=== PATIENT | female | born 1945 | race Caucasian/White ===

== ENCOUNTER 2017-05-31 10:12 | Inpatient (IN) | payer OTHER ==
[~2017-05-31] VITALS: Ht 177.8 cm; Wt 117.2 kg
[~2017-05-31 10:12] MED LIST: ASPI-891 PO; ATOR20TA65 PO; BIMA2.5D4 OU; BRIM5DRO2 OP; FENO45CA2 PO; FURO20TA4 PO; HYDR-4154 PO; INSU100I3 SQ; INSU3INS3 SQ; LAMO200T7 PO; LEVO75TA4 PO; LITH150C PO; LORA0.5T2 PO; SOTA120T PO
[2017-05-31 10:41] LABS: BASOPHILS % (AUTO) 0.1 % (0.0-5.0); EOSINOPHILS % (AUTO) 0.5 % (0.0-8.0); HEMATOCRIT 32.2 % (36-48); MEAN CORPUSCULAR HEMOGLOBIN 28.2 pg (27.0-33.0); MEAN CORPUSCULAR HGB CONC 33.5 g/dL (32.0-36.0); MEAN CORPUSCULAR VOLUME 84.1 fL (79-99); MONOCYTES % (AUTO) 9.4 % (3.0-13.0); NEUTROPHILS % (AUTO) 86.7 % (40.0-77.0); PLATELET COUNT (AUTO) 158 K/uL (130-400); RED BLOOD CELL COUNT(AUTO) 3.82 MIL/uL (4.00-5.50); RED CELL DISTRIBUTION WIDTH 14.9 % (11.0-15.5); WHITE BLOOD COUNT (AUTO) 8.8 K/uL (4.8-10.8)
[2017-05-31 10:44] LABS: LYMPHOCYTES % (AUTO) 3.3 % (21.0-51.0)
[2017-05-31 10:47] LABS: CREATININE 1.2 mg/dL (0.5-1.5)
[2017-05-31 10:54] LABS: INR 1.04 (0.85-1.15); PARTIAL THROMBOPLASTIN TIME 25.1 SEC (26.3-35.5); PROTHROMBIN TIME 10.9 SEC (9.6-11.6)
[2017-05-31 10:59] LABS: APPEARANCE,URINE Clear (CLEAR); BILIRUBIN,URINE Negative (NEGATIVE); COLOR,URINE Yellow (YELLOW); GLUCOSE, URINE (UA) Negative (NEGATIVE); KETONES,URINE Negative (NEGATIVE); LEUKOCYTE ESTERASE ,URINE Trace (NEGATIVE); NITRATE,URINE Negative (NEGATIVE); OCCULT BLOOD,URINE Negative (NEGATIVE); PROTEIN,URINE Negative (NEGATIVE)
[2017-05-31] MEDS ORDERED: SODIUM CHLORIDE 0.9% 1000ML 1,000 ML IV ONE (11:00)
[2017-05-31 11:18] LABS: ALBUMIN 3.3 g/dL (3.5-5.0); BILIRUBIN,TOTAL 0.7 mg/dL (0.2-1.0); TOTAL PROTEIN, SERUM 6.6 g/dL (6.0-8.3); TROPONIN I 0.1 ng/mL (0.00-0.06)
[2017-05-31 11:21] LABS: BACTERIA,URINE Many /HPF (None Seen); RBC,URINE None Seen /HPF (0-1); SQUAMOUS EPITHELIAL CELL,UR Rare /LPF (0-2); WBC,URINE 0-1 /HPF (0-1)
[2017-05-31] MEDS ORDERED: CEFTRIAXONE SODIUM 1 GM ONE (11:23)
[2017-05-31] MEDS ORDERED: ACETAMINOPHEN 325 MG TAB ONE (11:23)
[2017-05-31] MEDS ORDERED: SODIUM CHLORIDE 0.9% 50 ML IV ONE (11:24)
[2017-05-31] MEDS ORDERED: OSELTAMIVIR PHOSPHATE 75 MG CAP ONE (11:24)
[2017-05-31] MEDS ORDERED: ONDANSETRON HCL 4 MG/2 ML VIAL IV PRN (13:30)
[2017-05-31] MEDS ORDERED: GUAIFENESIN-DM 200/20 MG 10 ML PO PRN (13:30)
[2017-05-31] MEDS ORDERED: NITROGLYCERIN 0.4 MG SL TAB SL PRN (13:30)
[2017-05-31] MEDS ORDERED: ACETAMINOPHEN-CODEINE 300/30MG TAB PO PRN ×2 (13:30)
[2017-05-31] MEDS ORDERED: MORPHINE SULFATE 2 MG/ML 1ML SYG IV PRN (13:30)
[2017-05-31] MEDS ORDERED: HYDRALAZINE HCL 20 MG/ML VIAL IV PRN (13:30)
[2017-05-31] MEDS ORDERED: LACTULOSE 20 GM/30 ML UDCUP PO PRN (13:30)
[2017-05-31] MEDS ORDERED: MAG HYDROX/AL HYDROX/SIMETH ES 30 ML SUSP UDCUP PO PRN (13:30)
[2017-05-31] MEDS: METHYLPREDNISOLONE SOD SUCC 40MG/ML 1ML IVP SCH ×2 (13:30→20:55)
[2017-05-31] MEDS ORDERED: CEFTRIAXONE 1GM/D5W 50ML 50 ML IV SCH (13:30)
[2017-05-31] MEDS ORDERED: ACETAMINOPHEN 325 MG TAB PO PRN ×2 (13:30)
[2017-05-31] MEDS ORDERED: METHYLPREDNISOLONE SOD SUCC 40MG/ML 1ML ONE (17:11)
[2017-05-31 18:15] VITALS: BP 152/78
[2017-05-31 19:00] VITALS: BP 151/67
[2017-05-31] MEDS: IPRATROPIUM/ALBUTEROL SULFATE 3 ML SOLUTION IH SCH ×2 (19:19→23:55)
[2017-05-31] MEDS ORDERED: FURO40TA5 PO (20:43)
[2017-05-31] MEDS ORDERED: INSLAN SQ ×2 (20:43→20:49)
[2017-05-31] MEDS ORDERED: INSU100I15 SQ (20:49)
[2017-05-31] MEDS: FAMOTIDINE/PF 20 MG/2 ML VIAL IV SCH (20:55)
[2017-05-31] MEDS: OSELTAMIVIR PHOSPHATE 75 MG CAP PO SCH (20:55)
[2017-05-31] MEDS ORDERED: DILTIAZEM 125MG+100 ML NS 125 ML IV SCH (22:45)
[2017-05-31 22:55] LABS: CREATINE KINASE MB 2.1 ng/mL (0.5-3.6); TROPONIN I 0.08 ng/mL (0.00-0.06)
[2017-05-31] MEDS ORDERED: INSULIN HUMULIN R 100 UNIT/ML 3ML ONE (23:23)
[2017-05-31] MEDS: AZITHROMYCIN 500MG+NS 250ML 250 ML IV SCH (23:40)
[2017-05-31] MEDS: DILTIAZEM HCL 5 MG/ML 5 ML VIAL IVP SCH (23:40)
[2017-05-31] MEDS: FUROSEMIDE 10 MG/ML 2ML VIAL IV SCH (23:40)
[2017-05-31] MEDS: INSULIN HUMULIN R 100 UNIT/ML 3ML SQ SCH (23:43)
[2017-06-01] VITALS (8 sets, daily range): BP systolic 110–193; BP diastolic 60–97
[2017-06-01] MEDS: IPRATROPIUM/ALBUTEROL SULFATE 3 ML SOLUTION IH SCH ×4 (04:28→23:25)
[2017-06-01 05:43] LABS: HEMATOCRIT 30.5 % (36-48); MEAN CORPUSCULAR HEMOGLOBIN 27.8 pg (27.0-33.0); MEAN CORPUSCULAR HGB CONC 33.3 g/dL (32.0-36.0); MEAN CORPUSCULAR VOLUME 83.4 fL (79-99); PLATELET COUNT (AUTO) 163 K/uL (130-400); RED BLOOD CELL COUNT(AUTO) 3.66 MIL/uL (4.00-5.50); RED CELL DISTRIBUTION WIDTH 14.7 % (11.0-15.5); WHITE BLOOD COUNT (AUTO) 4.8 K/uL (4.8-10.8)
[2017-06-01 06:04] LABS: CREATININE 1.1 mg/dL (0.5-1.5); POTASSIUM 3.8 mmol/L (3.5-5.1); THYROID STIMULATING HORMONE 0.53 uIU/mL (0.36-3.74)
[2017-06-01 06:21] LABS: HEMOGLOBIN A1C 6.2 % (4.0-6.0)
[2017-06-01] MEDS: METHYLPREDNISOLONE SOD SUCC 40MG/ML 1ML IVP SCH ×3 (06:37→21:33)
[2017-06-01] MEDS: LEVOTHYROXINE 75 MCG TABLET PO SCH (06:38)
[2017-06-01] MEDS: INSULIN LISPRO 100 UNIT/ML 3ML SQ SCH ×3 (06:47→17:50)
[2017-06-01] MEDS: INSULIN HUMULIN R 100 UNIT/ML 3ML SQ SCH ×4 (06:50→21:55)
[2017-06-01] MEDS: BRIMONIDINE TARTRATE 0.2% 5 ML BOTTLE OP SCH ×2 (09:00→21:00)
[2017-06-01] MEDS ORDERED: FUROSEMIDE 40 MG TABLET PO SCH (09:00)
[2017-06-01] MEDS ORDERED: LITHIUM CARBONATE 150 MG CAPSULE PO SCH (09:00)
[2017-06-01] MEDS: FAMOTIDINE/PF 20 MG/2 ML VIAL IV SCH ×2 (10:05→21:33)
[2017-06-01] MEDS: CEFTRIAXONE SODIUM 1 GM IVP SCH (10:05)
[2017-06-01] MEDS: WATER FOR INJECTION,STERILE 5 ML VIAL INJ SCH (10:06)
[2017-06-01] MEDS: FUROSEMIDE 10 MG/ML 2ML VIAL IV SCH (10:06)
[2017-06-01] MEDS: ASPIRIN 325MG EC TAB 325 MG TABLET.DR PO SCH (10:07)
[2017-06-01] MEDS: OSELTAMIVIR PHOSPHATE 75 MG CAP PO SCH ×2 (10:07→21:35)
[2017-06-01] MEDS: SOTALOL HCL 80 MG TABLET PO SCH ×2 (10:43→21:35)
[2017-06-01] MEDS: HYDRALAZINE HCL 25 MG TABLET PO SCH ×3 (10:43→21:34)
[2017-06-01] MEDS ORDERED: INSULIN LISPRO 100 UNIT/ML 3ML SQ SCH (18:15)
[2017-06-01] MEDS: TRILIPIX PO SCH (21:00)
[2017-06-01] MEDS: LATANOPROST 2.5 ML DROPS OU SCH (21:00)
[2017-06-01] MEDS: LAMICTAL 200 MG PO SCH (21:00)
[2017-06-01] MEDS ORDERED: INSULIN GLARGINE 100 UNITS/ML 10 ML VIAL SQ SCH ×2 (21:00)
[2017-06-01] MEDS: ATORVASTATIN CALCIUM 20 MG TABLET PO SCH (21:34)
[2017-06-01] MEDS: DILTIAZEM HCL 5 MG/ML 5 ML VIAL IVP SCH (21:56)
[2017-06-01] MEDS: AZITHROMYCIN 500MG+NS 250ML 250 ML IV SCH (23:34)
[2017-06-02 03:30] VITALS: BP 147/62
[2017-06-02] MEDS: IPRATROPIUM/ALBUTEROL SULFATE 3 ML SOLUTION IH SCH ×4 (04:31→23:23)
[2017-06-02 05:38] LABS: HEMATOCRIT 38.9 % (36-48); MEAN CORPUSCULAR HEMOGLOBIN 31.3 pg (27.0-33.0); MEAN CORPUSCULAR HGB CONC 33.5 g/dL (32.0-36.0); MEAN CORPUSCULAR VOLUME 93.6 fL (79-99); PLATELET COUNT (AUTO) 204 K/uL (130-400); RED BLOOD CELL COUNT(AUTO) 4.16 MIL/uL (4.00-5.50); RED CELL DISTRIBUTION WIDTH 13.9 % (11.0-15.5); WHITE BLOOD COUNT (AUTO) 4.9 K/uL (4.8-10.8)
[2017-06-02 05:45] LABS: CREATININE 0.8 mg/dL (0.5-1.5); POTASSIUM 3.6 mmol/L (3.5-5.1)
[2017-06-02 06:03] VITALS: BP 172/73
[2017-06-02] MEDS: METHYLPREDNISOLONE SOD SUCC 40MG/ML 1ML IVP SCH ×2 (06:31→21:53)
[2017-06-02] MEDS: LEVOTHYROXINE 75 MCG TABLET PO SCH (06:31)
[2017-06-02] MEDS ORDERED: INSULIN LISPRO 100 UNIT/ML 3ML SQ ONE ×2 (06:36→12:18)
[2017-06-02] MEDS: INSULIN LISPRO 100 UNIT/ML 3ML SQ SCH ×3 (06:37→17:27)
[2017-06-02] MEDS: INSULIN HUMULIN R 100 UNIT/ML 3ML SQ SCH ×4 (06:38→21:00)
[2017-06-02 08:03] VITALS: BP 196/81
[2017-06-02] MEDS: FAMOTIDINE/PF 20 MG/2 ML VIAL IV SCH ×2 (08:38→21:53)
[2017-06-02] MEDS: FUROSEMIDE 10 MG/ML 2ML VIAL IV SCH (08:38)
[2017-06-02] MEDS: OSELTAMIVIR PHOSPHATE 75 MG CAP PO SCH ×2 (08:39→21:53)
[2017-06-02] MEDS: ENOXAPARIN SODIUM 40 MG/0.4 ML SYRINGE SQ SCH (08:39)
[2017-06-02] MEDS: ASPIRIN 325MG EC TAB 325 MG TABLET.DR PO SCH (08:39)
[2017-06-02] MEDS: HYDRALAZINE HCL 25 MG TABLET PO SCH ×3 (08:39→21:53)
[2017-06-02] MEDS: BRIMONIDINE TARTRATE 0.2% 5 ML BOTTLE OP SCH ×2 (08:47→21:00)
[2017-06-02] MEDS ORDERED: MAGNESIUM 2GM PREMIX 50ML 50 ML IV SCH (10:15)
[2017-06-02] MEDS ORDERED: POTASSIUM CHLORIDE 20MEQ/100ML 100 ML IV PRN (10:15)
[2017-06-02] MEDS ORDERED: POTASSIUM CHLORIDE 10% ELIXIR 20 MEQ/15 ML UDCUP PO PRN (10:15)
[2017-06-02] MEDS ORDERED: POTASSIUM CHLORIDE 20 MEQ ERTAB PO PRN (10:15)
[2017-06-02] MEDS ORDERED: LIDOCAINE HCL-MPF 1% 2ML VIAL IVP PRN (10:15)
[2017-06-02] MEDS: CEFTRIAXONE SODIUM 1 GM IVP SCH (10:50)
[2017-06-02] MEDS: WATER FOR INJECTION,STERILE 5 ML VIAL INJ SCH (10:50)
[2017-06-02 11:31] VITALS: BP 166/66
[2017-06-02 16:47] VITALS: BP 158/75
[2017-06-02 20:18] VITALS: BP 155/77
[2017-06-02] MEDS: LATANOPROST 2.5 ML DROPS OU SCH (21:00)
[2017-06-02] MEDS: LAMICTAL 200 MG PO SCH (21:00)
[2017-06-02] MEDS: TRILIPIX PO SCH (21:00)
[2017-06-02] MEDS: AZITHROMYCIN 500MG+NS 250ML 250 ML IV SCH (21:45)
[2017-06-02] MEDS: INSULIN GLARGINE 100 UNITS/ML 10 ML VIAL SQ SCH (21:46)
[2017-06-02] MEDS: ATORVASTATIN CALCIUM 20 MG TABLET PO SCH (21:53)
[2017-06-02] MEDS ORDERED: ALBUTEROL SULFATE 0.083% 2.5 MG/3 ML INH IH ONE (23:13)
[2017-06-02] MEDS ORDERED: IPRATROPIUM 0.5 MG/2.5 ML INH IH ONE (23:13)
[2017-06-03 00:05] VITALS: BP 133/74
[2017-06-03 04:03] VITALS: BP 188/79
[2017-06-03] MEDS: IPRATROPIUM/ALBUTEROL SULFATE 3 ML SOLUTION IH SCH ×3 (04:32→17:04)
[2017-06-03 05:08] LABS: HEMATOCRIT 34.9 % (36-48); MEAN CORPUSCULAR HEMOGLOBIN 27.6 pg (27.0-33.0); MEAN CORPUSCULAR HGB CONC 33.5 g/dL (32.0-36.0); MEAN CORPUSCULAR VOLUME 82.5 fL (79-99); PLATELET COUNT (AUTO) 189 K/uL (130-400); RED BLOOD CELL COUNT(AUTO) 4.22 MIL/uL (4.00-5.50); RED CELL DISTRIBUTION WIDTH 14.6 % (11.0-15.5); WHITE BLOOD COUNT (AUTO) 6.7 K/uL (4.8-10.8)
[2017-06-03 05:17] LABS: CREATININE 1.1 mg/dL (0.5-1.5); MAGNESIUM 2.1 mg/dL (1.80-2.40); POTASSIUM 4.2 mmol/L (3.5-5.1)
[2017-06-03] MEDS: LEVOTHYROXINE 75 MCG TABLET PO SCH (06:55)
[2017-06-03] MEDS: INSULIN LISPRO 100 UNIT/ML 3ML SQ SCH ×3 (07:03→17:16)
[2017-06-03] MEDS: INSULIN HUMULIN R 100 UNIT/ML 3ML SQ SCH ×4 (07:04→22:43)
[2017-06-03 07:34] VITALS: BP 168/71
[2017-06-03] MEDS: BRIMONIDINE TARTRATE 0.2% 5 ML BOTTLE OP SCH ×2 (09:00→22:59)
[2017-06-03] MEDS: ENOXAPARIN SODIUM 40 MG/0.4 ML SYRINGE SQ SCH (09:17)
[2017-06-03] MEDS: OSELTAMIVIR PHOSPHATE 75 MG CAP PO SCH ×2 (09:17→22:56)
[2017-06-03] MEDS: FAMOTIDINE/PF 20 MG/2 ML VIAL IV SCH ×2 (09:18→22:53)
[2017-06-03] MEDS: METHYLPREDNISOLONE SOD SUCC 40MG/ML 1ML IVP SCH ×2 (09:18→22:56)
[2017-06-03] MEDS: LOSARTAN 50 MG TABLET PO SCH (09:18)
[2017-06-03] MEDS: ASPIRIN 325MG EC TAB 325 MG TABLET.DR PO SCH (09:18)
[2017-06-03] MEDS: FUROSEMIDE 10 MG/ML 2ML VIAL IV SCH (09:19)
[2017-06-03] MEDS: HYDRALAZINE HCL 25 MG TABLET PO SCH ×3 (09:19→22:56)
[2017-06-03 11:58] VITALS: BP 142/76
[2017-06-03] MEDS: CEFTRIAXONE SODIUM 1 GM IVP SCH (12:00)
[2017-06-03] MEDS: WATER FOR INJECTION,STERILE 5 ML VIAL INJ SCH (12:00)
[2017-06-03] MEDS ORDERED: SOTALOL HCL 80 MG TABLET PO SCH (12:15)
[2017-06-03] MEDS ORDERED: METOPROLOL TARTRATE 1 MG/ML 5ML VIAL IV SCH (12:15)
[2017-06-03 16:33] VITALS: BP 139/90
[2017-06-03 20:00] VITALS: BP 144/71
[2017-06-03] MEDS: LATANOPROST 2.5 ML DROPS OU SCH (21:00)
[2017-06-03] MEDS: LAMICTAL 200 MG PO SCH (21:00)
[2017-06-03] MEDS: INSULIN GLARGINE 100 UNITS/ML 10 ML VIAL SQ SCH (22:44)
[2017-06-03] MEDS: ATORVASTATIN CALCIUM 20 MG TABLET PO SCH (22:56)
[2017-06-03] MEDS: SOTALOL HCL 80 MG TABLET PO SCH (22:58)
[2017-06-03] MEDS: AZITHROMYCIN 500MG+NS 250ML 250 ML IV SCH (22:58)
[2017-06-03] MEDS: TRILIPIX PO SCH (23:05)
[2017-06-04] VITALS: BP 140/78
[2017-06-04] MEDS: IPRATROPIUM/ALBUTEROL SULFATE 3 ML SOLUTION IH SCH ×2 (00:25→06:44)
[2017-06-04 03:47] VITALS: BP 131/99
[2017-06-04 05:26] LABS: POTASSIUM 4.1 mmol/L (3.5-5.1)
[2017-06-04] MEDS: INSULIN HUMULIN R 100 UNIT/ML 3ML SQ SCH (06:31)
[2017-06-04] MEDS: LEVOTHYROXINE 75 MCG TABLET PO SCH (06:45)
[2017-06-04] MEDS: INSULIN LISPRO 100 UNIT/ML 3ML SQ SCH (06:46)
[2017-06-04 08:56] VITALS: BP 176/79
[2017-06-04] MEDS: BRIMONIDINE TARTRATE 0.2% 5 ML BOTTLE OP SCH (09:00)
[2017-06-04] MEDS: SOTALOL HCL 80 MG TABLET PO SCH (09:00)
[2017-06-04 09:42] LABS: HEMATOCRIT 40.1 % (36-48); MEAN CORPUSCULAR HEMOGLOBIN 27.2 pg (27.0-33.0); MEAN CORPUSCULAR HGB CONC 32.7 g/dL (32.0-36.0); PLATELET COUNT (AUTO) 240 K/uL (130-400); RED BLOOD CELL COUNT(AUTO) 4.83 MIL/uL (4.00-5.50); RED CELL DISTRIBUTION WIDTH 14.2 % (11.0-15.5); WHITE BLOOD COUNT (AUTO) 9.9 K/uL (4.8-10.8)
[2017-06-04] MEDS: ASPIRIN 325MG EC TAB 325 MG TABLET.DR PO SCH (10:27)
[2017-06-04] MEDS: FAMOTIDINE/PF 20 MG/2 ML VIAL IV SCH (10:27)
[2017-06-04] MEDS: METHYLPREDNISOLONE SOD SUCC 40MG/ML 1ML IVP SCH (10:27)
[2017-06-04] MEDS: OSELTAMIVIR PHOSPHATE 75 MG CAP PO SCH (10:27)
[2017-06-04] MEDS: HYDRALAZINE HCL 25 MG TABLET PO SCH (10:28)
[2017-06-04] MEDS: LOSARTAN 50 MG TABLET PO SCH (10:29)
[2017-06-04] MEDS: WATER FOR INJECTION,STERILE 5 ML VIAL INJ SCH (10:43)
[2017-06-04] MEDS: CEFTRIAXONE SODIUM 1 GM IVP SCH (10:43)
[2017-06-04] MEDS: ENOXAPARIN SODIUM 40 MG/0.4 ML SYRINGE SQ SCH (10:43)
[2017-06-04] MEDS ORDERED: DOXY100T2 PO (10:55)
[2017-06-04] MEDS ORDERED: SOTA120T PO (10:55)
== END 2017-06-04 12:28 | disposition home or self-care (01) | DRG 193 ==
LOC: EDH 10:12 → OBSVTOIN 13:26 → EDHIP 13:26 → 4CH 18:10
PROVIDERS: ADMIT Internal Medicine; ATTEND Internal Medicine
DX: J10.1 Influenza due to other identified influenza virus with other respiratory manifestations (principal); I50.23 Acute on chronic systolic (congestive) heart failure; I48.0 Paroxysmal atrial fibrillation; E11.65 Type 2 diabetes mellitus with hyperglycemia; N39.0 Urinary tract infection, site not specified; J44.0 Chronic obstructive pulmonary disease with (acute) lower respiratory infection; I11.0 Hypertensive heart disease with heart failure; Z79.01 Long term (current) use of anticoagulants; I48.2 Chronic atrial fibrillation; J20.9 Acute bronchitis, unspecified; E03.9 Hypothyroidism, unspecified; E78.5 Hyperlipidemia, unspecified; B96.20 Unspecified Escherichia coli [E. coli] as the cause of diseases classified elsewhere; I25.10 Atherosclerotic heart disease of native coronary artery without angina pectoris; Z79.4 Long term (current) use of insulin; Z82.49 Family history of ischemic heart disease and other diseases of the circulatory system; Z90.710 Acquired absence of both cervix and uterus; Z96.653 Presence of artificial knee joint, bilateral; Z28.21 Immunization not carried out because of patient refusal
CPT/HCPCS: 36415; 71010; 71045; 80048; 80053; 81001; 82550; 82553; 82948; 83036; 83605; 83735; 83874; 83880; 84443; 84484; 85025; 85027; 85610; 85730; 87040; 87088; 87186; 87804; 93005; 94640; 94664; J0360; J0456; J0696; J1650; J1815; J1940; J2920; J3475; J3490; J7030

== ENCOUNTER 2017-06-13 08:52 | Emergency (ER) | payer OTHER ==
[~2017-06-13 08:52] MED LIST changes: +DOXY100T2 PO; -FURO20TA4 PO; +FURO40TA5 PO; +INSLAN SQ; +INSU100I15 SQ; -INSU100I3 SQ; -INSU3INS3 SQ; -LORA0.5T2 PO
[2017-06-13] MEDS ORDERED: SODIUM CHLORIDE 0.9% 1000ML 1,000 ML IV ONE (09:18)
[2017-06-13 09:39] LABS: BASOPHILS % (AUTO) 0.3 % (0.0-5.0); EOSINOPHILS % (AUTO) 1.2 % (0.0-8.0); HEMATOCRIT 35.1 % (36-48); LYMPHOCYTES % (AUTO) 15.3 % (21.0-51.0); MEAN CORPUSCULAR HGB CONC 32.7 g/dL (32.0-36.0); MEAN CORPUSCULAR VOLUME 82.6 fL (79-99); MONOCYTES % (AUTO) 11.3 % (3.0-13.0); NEUTROPHILS % (AUTO) 71.9 % (40.0-77.0); PLATELET COUNT (AUTO) 277 K/uL (130-400); RED BLOOD CELL COUNT(AUTO) 4.25 MIL/uL (4.00-5.50); RED CELL DISTRIBUTION WIDTH 14.5 % (11.0-15.5)
[2017-06-13 09:48] LABS: CREATININE 1.5 mg/dL (0.5-1.5); POTASSIUM 4.1 mmol/L (3.5-5.1)
[2017-06-13 10:15] LABS: BILIRUBIN,URINE Negative (NEGATIVE); COLOR,URINE Yellow (YELLOW); GLUCOSE, URINE (UA) Negative (NEGATIVE); KETONES,URINE Negative (NEGATIVE); LEUKOCYTE ESTERASE ,URINE Moderate (NEGATIVE); NITRATE,URINE Positive (NEGATIVE); OCCULT BLOOD,URINE Negative (NEGATIVE); PH,URINE 6.5 (5.0-8.0); PROTEIN,URINE Negative (NEGATIVE); UROBILINOGEN,URINE 0.2 mg/dL (0.2-1.0)
[2017-06-13 10:23] LABS: APPEARANCE,URINE SLIGHTLY CLOUDY (CLEAR)
[2017-06-13 10:27] LABS: BACTERIA,URINE Moderate /HPF (None Seen); RBC,URINE None Seen /HPF (0-1); SQUAMOUS EPITHELIAL CELL,UR Few /LPF (0-2)
[2017-06-13] MEDS ORDERED: CEFTRIAXONE SODIUM 1 GM ONE (10:45)
[2017-06-13] MEDS ORDERED: ACETAMINOPHEN 325 MG TAB ONE ×2 (10:45→16:41)
== END 2017-06-13 20:14 | disposition home or self-care (01) ==
LOC: EDH 08:52
DX: N39.0 Urinary tract infection, site not specified (principal); R53.1 Weakness; R26.2 Difficulty in walking, not elsewhere classified; I48.91 Unspecified atrial fibrillation; I25.10 Atherosclerotic heart disease of native coronary artery without angina pectoris; E11.9 Type 2 diabetes mellitus without complications; I10 Essential (primary) hypertension; E78.5 Hyperlipidemia, unspecified; E07.9 Disorder of thyroid, unspecified
CPT/HCPCS: 36415; 70450; 71045; 80048; 81001; 84484; 85025; 87088; 87186; 93005; 96361; 96374; 97161; 99285; G8978; G8979; G8980; G8981; G8982; G8983; J0696; J7030

== ENCOUNTER 2017-07-19 14:06 | Inpatient (IN) | payer OTHER ==
[~2017-07-19] VITALS: Ht 177.8 cm; Wt 115.3 kg
[2017-07-19 14:31] LABS: BASOPHILS % (AUTO) 0.4 % (0.0-5.0); EOSINOPHILS % (AUTO) 0.9 % (0.0-8.0); HEMATOCRIT 34.3 % (36-48); LYMPHOCYTES % (AUTO) 6.2 % (21.0-51.0); MEAN CORPUSCULAR HEMOGLOBIN 27.7 pg (27.0-33.0); MEAN CORPUSCULAR HGB CONC 33.3 g/dL (32.0-36.0); MEAN CORPUSCULAR VOLUME 83.1 fL (79-99); MONOCYTES % (AUTO) 11.8 % (3.0-13.0); NEUTROPHILS % (AUTO) 80.7 % (40.0-77.0); PLATELET COUNT (AUTO) 200 K/uL (130-400); RED BLOOD CELL COUNT(AUTO) 4.13 MIL/uL (4.00-5.50); RED CELL DISTRIBUTION WIDTH 14.6 % (11.0-15.5); WHITE BLOOD COUNT (AUTO) 11.2 K/uL (4.8-10.8)
[2017-07-19 14:51] LABS: POTASSIUM 4.2 mmol/L (3.5-5.1)
[2017-07-19 15:08] LABS: ALBUMIN 3.5 g/dL (3.5-5.0); BILIRUBIN,TOTAL 0.5 mg/dL (0.2-1.0); CREATININE 1.7 mg/dL (0.5-1.5)
[2017-07-19 16:24] LABS: APPEARANCE,URINE Clear (CLEAR); BILIRUBIN,URINE Negative (NEGATIVE); COLOR,URINE Yellow (YELLOW); GLUCOSE, URINE (UA) Negative (NEGATIVE); KETONES,URINE Negative (NEGATIVE); LEUKOCYTE ESTERASE ,URINE Moderate (NEGATIVE); NITRATE,URINE Positive (NEGATIVE); OCCULT BLOOD,URINE Negative (NEGATIVE); PH,URINE 6.5 (5.0-8.0); PROTEIN,URINE Negative (NEGATIVE)
[2017-07-19 17:32] LABS: BACTERIA,URINE Moderate /HPF (None Seen); RBC,URINE 0-1 /HPF (0-1); SQUAMOUS EPITHELIAL CELL,UR Few /LPF (0-2)
[2017-07-20] VITALS (7 sets, daily range): BP systolic 119–156; BP diastolic 58–97
[2017-07-20] MEDS ORDERED: SODIUM CHLORIDE 0.9% 1000ML 1,000 ML IV ONE (00:47)
[2017-07-20] MEDS ORDERED: MEROPENEM 500 MG VIAL ONE (00:47)
[2017-07-20] MEDS ORDERED: MEROPENEM 500MG+NS 50ML 50 ML IV SCH (01:15)
[2017-07-20] MEDS ORDERED: LIDOCAINE HCL-MPF 1% 2ML VIAL IVP PRN (01:15)
[2017-07-20] MEDS ORDERED: GLUCAGON 1MG KIT 1 MG ML IM PRN (01:15)
[2017-07-20] MEDS ORDERED: DEXTROSE 50%-WATER 50 ML DISP.SYRIN IV PRN (01:15)
[2017-07-20] MEDS ORDERED: DiphenhydrAMINE HCL 50 MG/ML VIAL IV PRN (01:15)
[2017-07-20] MEDS ORDERED: NITROGLYCERIN 0.4 MG SL TAB SL PRN (01:15)
[2017-07-20] MEDS ORDERED: HYDRALAZINE HCL 20 MG/ML VIAL IV PRN (01:15)
[2017-07-20] MEDS ORDERED: LACTULOSE 20 GM/30 ML UDCUP PO PRN (01:15)
[2017-07-20] MEDS ORDERED: POTASSIUM CHLORIDE 20 MEQ ERTAB PO PRN (01:15)
[2017-07-20] MEDS ORDERED: MORPHINE SULFATE 2 MG/ML 1ML SYG IVP PRN ×2 (01:15)
[2017-07-20] MEDS ORDERED: POTASSIUM CHLORIDE 10% ELIXIR 20 MEQ/15 ML UDCUP PO PRN (01:15)
[2017-07-20] MEDS ORDERED: ONDANSETRON HCL 4 MG/2 ML VIAL IV PRN (01:15)
[2017-07-20] MEDS ORDERED: POTASSIUM CHLORIDE 20MEQ/100ML 100 ML IV PRN (01:15)
[2017-07-20] MEDS: MEROPENEM 500 MG VIAL IVP SCH ×3 (02:04→17:09)
[2017-07-20] MEDS ORDERED: INSLAN SQ (03:37)
[2017-07-20] MEDS ORDERED: RANO500T2 PO (03:37)
[2017-07-20] MEDS ORDERED: ARIP5TAB19 PO (03:37)
[2017-07-20 05:57] LABS: HEMATOCRIT 29.9 % (36-48); MEAN CORPUSCULAR HEMOGLOBIN 29.7 pg (27.0-33.0); MEAN CORPUSCULAR HGB CONC 35.6 g/dL (32.0-36.0); MEAN CORPUSCULAR VOLUME 83.5 fL (79-99); PLATELET COUNT (AUTO) 166 K/uL (130-400); RED BLOOD CELL COUNT(AUTO) 3.58 MIL/uL (4.00-5.50); RED CELL DISTRIBUTION WIDTH 14.7 % (11.0-15.5); WHITE BLOOD COUNT (AUTO) 9.4 K/uL (4.8-10.8)
[2017-07-20 06:05] LABS: INR 1.04 (0.85-1.15); PROTHROMBIN TIME 10.9 SEC (9.6-11.6)
[2017-07-20 06:15] LABS: ALBUMIN 2.8 g/dL (3.5-5.0); BILIRUBIN,TOTAL 0.4 mg/dL (0.2-1.0); CREATININE 1.1 mg/dL (0.5-1.5); TOTAL PROTEIN, SERUM 6.2 g/dL (6.0-8.3)
[2017-07-20] MEDS: INSULIN HUMULIN R 100 UNIT/ML 3ML SQ SCH ×4 (06:46→20:53)
[2017-07-20] MEDS: INSULIN LISPRO 100 UNIT/ML 3ML SQ SCH ×3 (07:30→17:16)
[2017-07-20] MEDS: LEVOTHYROXINE 75 MCG TABLET PO SCH (09:00)
[2017-07-20] MEDS: SOTALOL HCL 80 MG TABLET PO SCH ×2 (09:00→20:42)
[2017-07-20] MEDS: ASPIRIN 325MG EC TAB 325 MG TABLET.DR PO SCH (09:00)
[2017-07-20] MEDS: BRIMONIDINE TARTRATE OU SCH ×2 (09:00→20:44)
[2017-07-20] MEDS: RANOLAZINE 500 MG TAB.SR.12H PO SCH ×2 (09:00→20:42)
[2017-07-20] MEDS: LITHIUM CARBONATE 150 MG CAPSULE PO SCH ×2 (09:00→20:42)
[2017-07-20] MEDS: FUROSEMIDE 40 MG TABLET PO SCH (09:00)
[2017-07-20] MEDS: FAMOTIDINE/PF 20 MG/2 ML VIAL IV SCH ×2 (12:03→20:22)
[2017-07-20] MEDS: LAMOTRIGINE 25 MG TAB PO SCH (20:23)
[2017-07-20] MEDS: FENOFIBRATE NANOCRYSTALLIZED 48 MG TAB PO SCH (20:23)
[2017-07-20] MEDS: ATORVASTATIN CALCIUM 20 MG TABLET PO SCH (20:23)
[2017-07-20] MEDS: ARIPIPRAZOLE 5 MG TABLET PO SCH (20:23)
[2017-07-20] MEDS: BIMATOPROST OU SCH (20:44)
[2017-07-20] MEDS: INSULIN GLARGINE 100 UNITS/ML 10 ML VIAL SQ SCH (20:54)
[2017-07-21] MEDS: MEROPENEM 500 MG VIAL IVP SCH ×3 (02:09→16:57)
[2017-07-21 04:50] VITALS: BP 132/63
[2017-07-21 05:47] LABS: HEMATOCRIT 31.5 % (36-48); MEAN CORPUSCULAR HEMOGLOBIN 28.1 pg (27.0-33.0); MEAN CORPUSCULAR HGB CONC 33.3 g/dL (32.0-36.0); MEAN CORPUSCULAR VOLUME 84.3 fL (79-99); PLATELET COUNT (AUTO) 174 K/uL (130-400); RED BLOOD CELL COUNT(AUTO) 3.73 MIL/uL (4.00-5.50); RED CELL DISTRIBUTION WIDTH 15.1 % (11.0-15.5)
[2017-07-21 05:54] LABS: POTASSIUM 4.1 mmol/L (3.5-5.1)
[2017-07-21] MEDS: INSULIN HUMULIN R 100 UNIT/ML 3ML SQ SCH ×4 (07:06→20:42)
[2017-07-21] MEDS: INSULIN LISPRO 100 UNIT/ML 3ML SQ SCH ×3 (07:30→17:00)
[2017-07-21] MEDS: LEVOTHYROXINE 75 MCG TABLET PO SCH (07:51)
[2017-07-21 08:05] VITALS: BP 154/71
[2017-07-21] MEDS: BRIMONIDINE TARTRATE OU SCH ×2 (09:00→20:53)
[2017-07-21] MEDS: FAMOTIDINE/PF 20 MG/2 ML VIAL IV SCH ×2 (09:45→20:49)
[2017-07-21] MEDS: LITHIUM CARBONATE 150 MG CAPSULE PO SCH ×2 (09:54→20:49)
[2017-07-21] MEDS: RANOLAZINE 500 MG TAB.SR.12H PO SCH ×2 (09:54→20:51)
[2017-07-21] MEDS: FUROSEMIDE 40 MG TABLET PO SCH (09:54)
[2017-07-21] MEDS: SOTALOL HCL 80 MG TABLET PO SCH ×2 (09:54→20:51)
[2017-07-21] MEDS: ASPIRIN 325MG EC TAB 325 MG TABLET.DR PO SCH (09:54)
[2017-07-21 11:34] VITALS: BP 165/76
[2017-07-21] MEDS ORDERED: GADOBENATE DIMEGLUMINE 20 ML IV ONE (16:00)
[2017-07-21 16:59] VITALS: BP 162/78
[2017-07-21 19:20] VITALS: BP 161/67
[2017-07-21] MEDS: LAMOTRIGINE 25 MG TAB PO SCH (20:47)
[2017-07-21] MEDS: ACETAMINOPHEN 325 MG TAB PO PRN (20:48)
[2017-07-21] MEDS: FENOFIBRATE NANOCRYSTALLIZED 48 MG TAB PO SCH (20:48)
[2017-07-21] MEDS: ARIPIPRAZOLE 5 MG TABLET PO SCH (20:48)
[2017-07-21] MEDS: ATORVASTATIN CALCIUM 20 MG TABLET PO SCH (20:51)
[2017-07-21] MEDS: BIMATOPROST OU SCH (20:53)
[2017-07-21] MEDS: INSULIN GLARGINE 100 UNITS/ML 10 ML VIAL SQ SCH (21:10)
[2017-07-21 23:00] VITALS: BP 146/64
[2017-07-22] MEDS: MEROPENEM 500 MG VIAL IVP SCH ×4 (01:45→17:23)
[2017-07-22 03:10] VITALS: BP 119/53
[2017-07-22] MEDS: INSULIN HUMULIN R 100 UNIT/ML 3ML SQ SCH ×4 (06:38→20:38)
[2017-07-22] MEDS: LEVOTHYROXINE 75 MCG TABLET PO SCH (06:42)
[2017-07-22] MEDS: INSULIN LISPRO 100 UNIT/ML 3ML SQ SCH ×3 (06:47→17:24)
[2017-07-22] MEDS: ACETAMINOPHEN 325 MG TAB PO PRN (06:53)
[2017-07-22 08:00] VITALS: BP 140/62
[2017-07-22] MEDS: BRIMONIDINE TARTRATE OU SCH ×2 (09:00→20:54)
[2017-07-22] MEDS ORDERED: MEROPENEM 500MG+NS 50ML 50 ML IV SCH ×2 (10:00)
[2017-07-22] MEDS: FUROSEMIDE 40 MG TABLET PO SCH (10:49)
[2017-07-22] MEDS: FAMOTIDINE/PF 20 MG/2 ML VIAL IV SCH ×2 (11:08→20:35)
[2017-07-22] MEDS: ASPIRIN 325MG EC TAB 325 MG TABLET.DR PO SCH (11:08)
[2017-07-22] MEDS: SOTALOL HCL 80 MG TABLET PO SCH ×2 (11:08→20:35)
[2017-07-22] MEDS: LITHIUM CARBONATE 150 MG CAPSULE PO SCH ×2 (11:09→20:35)
[2017-07-22] MEDS: RANOLAZINE 500 MG TAB.SR.12H PO SCH ×2 (11:09→20:35)
[2017-07-22 11:41] VITALS: BP 151/74
[2017-07-22 16:00] VITALS: BP 151/65
[2017-07-22 20:00] VITALS: BP 139/60
[2017-07-22] MEDS: ARIPIPRAZOLE 5 MG TABLET PO SCH (20:34)
[2017-07-22] MEDS: FENOFIBRATE NANOCRYSTALLIZED 48 MG TAB PO SCH (20:34)
[2017-07-22] MEDS: ATORVASTATIN CALCIUM 20 MG TABLET PO SCH (20:35)
[2017-07-22] MEDS: INSULIN GLARGINE 100 UNITS/ML 10 ML VIAL SQ SCH (20:37)
[2017-07-22] MEDS: BIMATOPROST OU SCH (20:53)
[2017-07-22] MEDS: LAMOTRIGINE 25 MG TAB PO SCH (22:57)
[2017-07-22 23:55] VITALS: BP 143/58
[2017-07-23] MEDS: MEROPENEM 500 MG VIAL IVP SCH ×3 (01:58→17:49)
[2017-07-23 04:00] VITALS: BP 140/61
[2017-07-23 05:46] LABS: HEMATOCRIT 30.2 % (36-48); MEAN CORPUSCULAR HEMOGLOBIN 27.8 pg (27.0-33.0); MEAN CORPUSCULAR HGB CONC 33.4 g/dL (32.0-36.0); PLATELET COUNT (AUTO) 209 K/uL (130-400); RED BLOOD CELL COUNT(AUTO) 3.64 MIL/uL (4.00-5.50); RED CELL DISTRIBUTION WIDTH 14.5 % (11.0-15.5); WHITE BLOOD COUNT (AUTO) 7.3 K/uL (4.8-10.8)
[2017-07-23 05:53] LABS: CREATININE 1.1 mg/dL (0.5-1.5); POTASSIUM 3.8 mmol/L (3.5-5.1)
[2017-07-23] MEDS: INSULIN HUMULIN R 100 UNIT/ML 3ML SQ SCH ×4 (05:57→20:58)
[2017-07-23] MEDS: LEVOTHYROXINE 75 MCG TABLET PO SCH (06:29)
[2017-07-23 07:30] VITALS: BP 152/76
[2017-07-23] MEDS: INSULIN LISPRO 100 UNIT/ML 3ML SQ SCH ×3 (07:47→17:55)
[2017-07-23] MEDS: SOTALOL HCL 80 MG TABLET PO SCH ×2 (09:00→20:57)
[2017-07-23] MEDS: BRIMONIDINE TARTRATE OU SCH ×2 (09:00→20:59)
[2017-07-23] MEDS: FUROSEMIDE 40 MG TABLET PO SCH (09:18)
[2017-07-23] MEDS: RANOLAZINE 500 MG TAB.SR.12H PO SCH ×2 (09:18→20:57)
[2017-07-23] MEDS: FAMOTIDINE/PF 20 MG/2 ML VIAL IV SCH ×2 (09:18→20:56)
[2017-07-23] MEDS: LITHIUM CARBONATE 150 MG CAPSULE PO SCH ×2 (09:18→20:57)
[2017-07-23] MEDS: ASPIRIN 325MG EC TAB 325 MG TABLET.DR PO SCH (09:18)
[2017-07-23 12:00] VITALS: BP 129/61
[2017-07-23 16:00] VITALS: BP 144/74
[2017-07-23 19:55] VITALS: BP 155/62
[2017-07-23] MEDS: ARIPIPRAZOLE 5 MG TABLET PO SCH (20:57)
[2017-07-23] MEDS: FENOFIBRATE NANOCRYSTALLIZED 48 MG TAB PO SCH (20:57)
[2017-07-23] MEDS: LAMOTRIGINE 25 MG TAB PO SCH (20:57)
[2017-07-23] MEDS: ATORVASTATIN CALCIUM 20 MG TABLET PO SCH (20:57)
[2017-07-23] MEDS: BIMATOPROST OU SCH (20:59)
[2017-07-23] MEDS: INSULIN GLARGINE 100 UNITS/ML 10 ML VIAL SQ SCH (22:14)
[2017-07-23 23:43] VITALS: BP 141/57
[2017-07-24] MEDS: MEROPENEM 500 MG VIAL IVP SCH ×3 (02:20→17:17)
[2017-07-24 04:00] VITALS: BP 123/83
[2017-07-24 05:28] LABS: HEMATOCRIT 29.5 % (36-48); MEAN CORPUSCULAR HEMOGLOBIN 28.3 pg (27.0-33.0); MEAN CORPUSCULAR HGB CONC 34.2 g/dL (32.0-36.0); MEAN CORPUSCULAR VOLUME 82.6 fL (79-99); PLATELET COUNT (AUTO) 237 K/uL (130-400); RED BLOOD CELL COUNT(AUTO) 3.57 MIL/uL (4.00-5.50); RED CELL DISTRIBUTION WIDTH 14.6 % (11.0-15.5); WHITE BLOOD COUNT (AUTO) 7.5 K/uL (4.8-10.8)
[2017-07-24 05:36] LABS: CREATININE 1.4 mg/dL (0.5-1.5); POTASSIUM 3.8 mmol/L (3.5-5.1)
[2017-07-24] MEDS: INSULIN HUMULIN R 100 UNIT/ML 3ML SQ SCH ×3 (06:31→16:30)
[2017-07-24] MEDS: LEVOTHYROXINE 75 MCG TABLET PO SCH (06:32)
[2017-07-24 07:45] VITALS: BP 164/74
[2017-07-24] MEDS: SOTALOL HCL 80 MG TABLET PO SCH (07:50)
[2017-07-24] MEDS: BRIMONIDINE TARTRATE OU SCH (07:50)
[2017-07-24] MEDS: LITHIUM CARBONATE 150 MG CAPSULE PO SCH (08:03)
[2017-07-24] MEDS: RANOLAZINE 500 MG TAB.SR.12H PO SCH (08:03)
[2017-07-24] MEDS: FUROSEMIDE 40 MG TABLET PO SCH (08:03)
[2017-07-24] MEDS: FAMOTIDINE/PF 20 MG/2 ML VIAL IV SCH (08:03)
[2017-07-24] MEDS: INSULIN LISPRO 100 UNIT/ML 3ML SQ SCH ×3 (08:07→17:00)
[2017-07-24] MEDS: ASPIRIN 325MG EC TAB 325 MG TABLET.DR PO SCH (08:20)
[2017-07-24 12:00] VITALS: BP 145/71
[2017-07-24 16:00] VITALS: BP 165/72
== END 2017-07-24 18:07 | disposition home or self-care (01) | DRG 815 ==
LOC: EDH 14:06 → EDHIP 22:13 → OBSVTOIN 22:13 → 4CH 07-20 00:31
PROVIDERS: ADMIT Internal Medicine; ATTEND Internal Medicine
DX: D73.5 Infarction of spleen (principal); N39.0 Urinary tract infection, site not specified; E11.22 Type 2 diabetes mellitus with diabetic chronic kidney disease; I48.91 Unspecified atrial fibrillation; D73.3 Abscess of spleen; E66.01 Morbid (severe) obesity due to excess calories; D64.9 Anemia, unspecified; I12.9 Hypertensive chronic kidney disease with stage 1 through stage 4 chronic kidney disease, or unspecified chronic kidney disease; E03.9 Hypothyroidism, unspecified; E78.5 Hyperlipidemia, unspecified; I25.10 Atherosclerotic heart disease of native coronary artery without angina pectoris; N18.9 Chronic kidney disease, unspecified; Z96.653 Presence of artificial knee joint, bilateral; Z16.24 Resistance to multiple antibiotics; K59.00 Constipation, unspecified; Z17.1 Estrogen receptor negative status [ER-]; Z85.3 Personal history of malignant neoplasm of breast; Z90.710 Acquired absence of both cervix and uterus; Z68.36 Body mass index [BMI] 36.0-36.9, adult; Z97.10 Presence of artificial limb (complete) (partial), unspecified; Z92.21 Personal history of antineoplastic chemotherapy
CPT/HCPCS: 36415; 71045; 71250; 74176; 74183; 76700; 76705; 78580; 80048; 80053; 81001; 81241; 82948; 83690; 84484; 85025; 85027; 85210; 85300; 85303; 85305; 85306; 85378; 85610; 85732; 87040; 87088; 87186; 88313; 93005; 93306; A4218; A9540; A9577; J2185; J3490; J7030

== ENCOUNTER 2017-07-31 13:18 | Emergency (ER) | payer OTHER ==
[~2017-07-31 13:18] MED LIST changes: +ARIP5TAB19 PO; -DOXY100T2 PO; -HYDR-4154 PO; +RANO500T2 PO
[2017-07-31 14:01] LABS: BASOPHILS % (AUTO) 0.4 % (0.0-5.0); EOSINOPHILS % (AUTO) 4.6 % (0.0-8.0); HEMATOCRIT 36.4 % (36-48); LYMPHOCYTES % (AUTO) 10.2 % (21.0-51.0); MEAN CORPUSCULAR HEMOGLOBIN 27.5 pg (27.0-33.0); MEAN CORPUSCULAR HGB CONC 32.8 g/dL (32.0-36.0); MEAN CORPUSCULAR VOLUME 83.9 fL (79-99); MONOCYTES % (AUTO) 8.6 % (3.0-13.0); NEUTROPHILS % (AUTO) 76.2 % (40.0-77.0); PLATELET COUNT (AUTO) 511 K/uL (130-400); RED BLOOD CELL COUNT(AUTO) 4.34 MIL/uL (4.00-5.50); RED CELL DISTRIBUTION WIDTH 14.9 % (11.0-15.5); WHITE BLOOD COUNT (AUTO) 9.9 K/uL (4.8-10.8)
[2017-07-31 14:06] LABS: CREATININE 1.5 mg/dL (0.5-1.5)
[2017-07-31 14:11] LABS: INR 1.04 (0.85-1.15); PARTIAL THROMBOPLASTIN TIME 25.3 SEC (26.3-35.5); PROTHROMBIN TIME 10.9 SEC (9.6-11.6)
[2017-07-31 14:16] LABS: APPEARANCE,URINE CLOUDY (CLEAR); BILIRUBIN,URINE SMALL (NEGATIVE); COLOR,URINE YELLOW (YELLOW); GLUCOSE, URINE (UA) NEGATIVE (NEGATIVE); KETONES,URINE NEGATIVE (NEGATIVE); LEUKOCYTE ESTERASE ,URINE MODERATE (NEGATIVE); NITRATE,URINE NEGATIVE (NEGATIVE); OCCULT BLOOD,URINE NEGATIVE (NEGATIVE); PH,URINE 6.5 (5.0-8.0); PROTEIN,URINE TRACE (NEGATIVE); UROBILINOGEN,URINE 0.2 mg/dL (0.2-1.0)
[2017-07-31 14:19] LABS: ALBUMIN 3.6 g/dL (3.5-5.0); BILIRUBIN,TOTAL 0.3 mg/dL (0.2-1.0); TOTAL PROTEIN, SERUM 7.6 g/dL (6.0-8.3)
[2017-07-31 15:07] LABS: RBC,URINE 0-1 /HPF (0-1)
[2017-07-31 15:08] LABS: BACTERIA,URINE Few /HPF (None Seen); SQUAMOUS EPITHELIAL CELL,UR Moderate /LPF (0-2); YEAST,URINE BUDDING Rare /HPF (None Seen)
[2017-07-31 15:09] LABS: TRANSITIONAL EPI CELLS,URINE Few /LPF (None Seen)
== END 2017-07-31 16:21 | disposition home or self-care (01) ==
LOC: EDH 13:18
DX: I48.91 Unspecified atrial fibrillation (principal); I48.92 Unspecified atrial flutter; I25.10 Atherosclerotic heart disease of native coronary artery without angina pectoris; E11.9 Type 2 diabetes mellitus without complications; I10 Essential (primary) hypertension; E78.5 Hyperlipidemia, unspecified; E07.9 Disorder of thyroid, unspecified; Z79.4 Long term (current) use of insulin
CPT/HCPCS: 36415; 71045; 80053; 81001; 82550; 82553; 84484; 85025; 85610; 85730; 93005

== ENCOUNTER → 2018-07-30 | Outpatient (CLI) | payer OTHER | END | disposition home or self-care (01) | LOC: RAH 10:49 | PROVIDERS: ATTEND Internal Medicine Endocrinology, Diabetes & Metabolism | DX: E04.2 Nontoxic multinodular goiter (principal) | CPT/HCPCS: 76536 ==

== ENCOUNTER → 2019-03-09 | Outpatient (CLI) | payer OTHER ==
[~2019-03-09] MED LIST changes: -ARIP5TAB19 PO; +ARIP5TAB56 PO; +LAMO200T10 PO; -LAMO200T7 PO
== END | disposition home or self-care (01) ==
LOC: RAH 16:30
PROVIDERS: ATTEND Internal Medicine
DX: M51.36 Other intervertebral disc degeneration, lumbar region (principal); M51.86 Other intervertebral disc disorders, lumbar region
CPT/HCPCS: 72100

== ENCOUNTER 2021-01-17 05:38 | Day surgery (SDC) | payer MEDICARE ==
[2021-01-11 12:31] LABS: BASOPHILS % (AUTO) 0.1 % (0.0-5.0); MEAN CORPUSCULAR HEMOGLOBIN 27.3 pg (27.0-33.0); MONOCYTES % (AUTO) 8.9 % (3.0-13.0); NEUTROPHILS % (AUTO) 74.7 % (40.0-77.0); PLATELET COUNT (AUTO) 196 K/uL (130-400); RED BLOOD CELL COUNT(AUTO) 4.43 MIL/uL (4.00-5.50); RED CELL DISTRIBUTION WIDTH 14.4 % (11.0-15.5); WHITE BLOOD COUNT (AUTO) 7.2 K/uL (4.8-10.8)
[2021-01-11 12:40] LABS: CREATININE 1.4 mg/dL (0.5-1.5); POTASSIUM 5.4 mmol/L (3.5-5.1)
[2021-01-11 12:41] LABS: INR 1.08 (0.85-1.15); PROTHROMBIN TIME 11.7 SEC (9.6-11.6)
[2021-01-11 12:42] LABS: PARTIAL THROMBOPLASTIN TIME 29.3 SEC (26.3-35.5)
[2021-01-16 09:40] VITALS: BP 110/81
[2021-01-17] VITALS (9 sets, daily range): BP systolic 92–133; BP diastolic 47–76
[~2021-01-17] VITALS: Ht 177.8 cm; Wt 118.8 kg
[~2021-01-17 05:38] MED LIST changes: +AMLO-257 PO; +APIX5TAB PO; -ARIP5TAB56 PO; -ASPI-891 PO; -ATOR20TA65 PO; +BIMA12.5OS OD; -BIMA2.5D4 OU; -BRIM5DRO2 OP; +CARI3CAP PO; +CYCL30DR OP; +DOCU100T9 PO; +DRON400T7 PO; -FENO45CA2 PO; +FURO20TA4 PO; -FURO40TA5 PO; -INSLAN SQ; +INSU3INS3 SQ; -LEVO75TA4 PO; -LITH150C PO; +LOSA100T58 PO; +MELA3CAP2 PO; +METO-391 PO; +MIRA50TA PO; +MULT-1367 PO; +MV-M1TAB20 PO; +NETA2.5D OP; +OMEG-148 PO; +OXYB-66 PO; -RANO500T2 PO; -SOTA120T PO; +VENL75CA97 PO
[2021-01-17] MEDS ORDERED: LEVO75CA5 PO (07:04)
[2021-01-17] MEDS ORDERED: MIDAZOLAM HCL 1 MG/ML 2ML VIAL ONE ×3 (07:55→08:55)
[2021-01-17] MEDS ORDERED: HEPARIN 10,000 UNIT/10ML (1,000 UNIT/ML) VIAL ONE (07:55)
[2021-01-17] MEDS ORDERED: MEPERIDINE-PF 25 MG/ML SYG ONE ×3 (07:55→08:55)
[2021-01-17] MEDS ORDERED: LIDOCAINE HCL 400MG/20ML VIAL ONE (07:55)
[2021-01-17] MEDS ORDERED: 0.9%NACL 1000ML 1,000 ML IV SCH (08:00)
== END 2021-01-17 13:15 | disposition home or self-care (01) ==
LOC: DAH 05:38
PROVIDERS: ATTEND Internal Medicine Cardiovascular Disease
DX: I48.3 Typical atrial flutter (principal); I48.0 Paroxysmal atrial fibrillation; I44.30 Unspecified atrioventricular block; I25.2 Old myocardial infarction; I10 Essential (primary) hypertension; E03.9 Hypothyroidism, unspecified; E11.9 Type 2 diabetes mellitus without complications; E78.5 Hyperlipidemia, unspecified; F32.9 Major depressive disorder, single episode, unspecified; Z82.49 Family history of ischemic heart disease and other diseases of the circulatory system; Z83.3 Family history of diabetes mellitus; Z79.4 Long term (current) use of insulin; Z79.01 Long term (current) use of anticoagulants; Z79.899 Other long term (current) drug therapy; Z98.890 Other specified postprocedural states; Z90.10 Acquired absence of unspecified breast and nipple; Z85.3 Personal history of malignant neoplasm of breast
CPT/HCPCS: 36415; 80048; 82948; 85025; 85610; 85730; 93005 ×2; 93613; 93621; 93653; A4215; A4216; A4221; A4222; A4223 ×3; A4520; A4554; A4606; A4649 ×2; A4663; C1730; C1732; C1894 ×2; J1644 ×2; J2175 ×3; J2250 ×3; J3490; 99156; 99157

== ENCOUNTER 2021-03-14 06:22 | Day surgery (SDC) | payer MEDICARE ==
[2021-03-08 10:13] LABS: BASOPHILS % (AUTO) 0.2 % (0.0-5.0); EOSINOPHILS % (AUTO) 0.2 % (0.0-8.0); HEMATOCRIT 44.2 % (36-48); LYMPHOCYTES % (AUTO) 19.6 % (21.0-51.0); MEAN CORPUSCULAR HEMOGLOBIN 27.3 pg (27.0-33.0); MEAN CORPUSCULAR HGB CONC 31.2 g/dL (32.0-36.0); MEAN CORPUSCULAR VOLUME 87.5 fL (79-99); MONOCYTES % (AUTO) 10.3 % (3.0-13.0); NEUTROPHILS % (AUTO) 69.5 % (40.0-77.0); PLATELET COUNT (AUTO) 216 K/uL (130-400); RED BLOOD CELL COUNT(AUTO) 5.05 MIL/uL (4.00-5.50); RED CELL DISTRIBUTION WIDTH 14.2 % (11.0-15.5); WHITE BLOOD COUNT (AUTO) 6.6 K/uL (4.8-10.8)
[2021-03-08 10:18] LABS: CREATININE 1.3 mg/dL (0.5-1.5)
[2021-03-08 10:21] LABS: INR 1.15 (0.85-1.15); PROTHROMBIN TIME 12.4 SEC (9.6-11.6)
[2021-03-08 10:22] LABS: PARTIAL THROMBOPLASTIN TIME 31.3 SEC (26.3-35.5)
[2021-03-14] VITALS (13 sets, daily range): BP systolic 128–162; BP diastolic 62–84
[~2021-03-14] VITALS: Ht 177.8 cm; Wt 120.2 kg
[~2021-03-14 06:22] MED LIST changes: +ATOR40TA71 PO; -BIMA12.5OS OD; +BIMA12.5OS OU; +CLIN-141 PO; -CYCL30DR OP; +CYCL30DR OU; -DRON400T7 PO; +L.AC1CAP6 PO; +LEVO75CA5 PO; +MELA10TA2 PO; -MELA3CAP2 PO; -MV-M1TAB20 PO; -NETA2.5D OP; +NETA2.5D OU; +VITAMIN D PO
[2021-03-14] MEDS ORDERED: 0.9%NACL 1000ML 1,000 ML IV SCH (08:00)
[2021-03-14] MEDS ORDERED: PROPOFOL 10 MG/ML 20ML VIAL IV ONE (08:36)
== END 2021-03-14 10:00 | disposition home or self-care (01) ==
LOC: DAH 06:22
PROVIDERS: ATTEND Internal Medicine Cardiovascular Disease
DX: I48.0 Paroxysmal atrial fibrillation (principal); I48.4 Atypical atrial flutter; I12.9 Hypertensive chronic kidney disease with stage 1 through stage 4 chronic kidney disease, or unspecified chronic kidney disease; E11.22 Type 2 diabetes mellitus with diabetic chronic kidney disease; E78.5 Hyperlipidemia, unspecified; F32.9 Major depressive disorder, single episode, unspecified; E03.9 Hypothyroidism, unspecified; N18.30 Chronic kidney disease, stage 3 unspecified; Z96.651 Presence of right artificial knee joint; Z79.01 Long term (current) use of anticoagulants; Z79.899 Other long term (current) drug therapy
CPT/HCPCS: 36415; 80048; 82948; 85025; 85610; 85730; 87635; 92960; 93005 ×2; A4215 ×2; A4216; A4221; A4222; A4223 ×3; A4606; A4663; C9803; J2704; J7030

== ENCOUNTER → 2021-03-15 | Outpatient (CLI) | payer MEDICARE | END | disposition home or self-care (01) | LOC: RAH 10:18 | PROVIDERS: ATTEND Internal Medicine | DX: T14.90XA Injury, unspecified, initial encounter (principal); M85.88 Other specified disorders of bone density and structure, other site; M79.89 Other specified soft tissue disorders; L03.90 Cellulitis, unspecified; E11.628 Type 2 diabetes mellitus with other skin complications; M25.462 Effusion, left knee; Z68.38 Body mass index [BMI] 38.0-38.9, adult; X58.XXXA Exposure to other specified factors, initial encounter; Y93.89 Activity, other specified; Y92.89 Other specified places as the place of occurrence of the external cause; Y99.8 Other external cause status | CPT/HCPCS: 73590; 93005 ==

== ENCOUNTER → 2021-03-19 | Outpatient (CLI) | payer MEDICARE ==
[~2021-03-19] MED LIST changes: +LIDOCAINE HCL 4% LTA SOL 4 ML VIAL TP ONE
== END | disposition home or self-care (01) ==
LOC: WHH 10:27
PROVIDERS: ATTEND Family Medicine
DX: S81.802A Unspecified open wound, left lower leg, initial encounter (principal); E11.21 Type 2 diabetes mellitus with diabetic nephropathy; E11.22 Type 2 diabetes mellitus with diabetic chronic kidney disease; I12.9 Hypertensive chronic kidney disease with stage 1 through stage 4 chronic kidney disease, or unspecified chronic kidney disease; N18.30 Chronic kidney disease, stage 3 unspecified; I89.0 Lymphedema, not elsewhere classified; E78.5 Hyperlipidemia, unspecified; I25.10 Atherosclerotic heart disease of native coronary artery without angina pectoris; I48.0 Paroxysmal atrial fibrillation; F31.9 Bipolar disorder, unspecified; E03.9 Hypothyroidism, unspecified; Z68.38 Body mass index [BMI] 38.0-38.9, adult; Z96.651 Presence of right artificial knee joint; Z79.899 Other long term (current) drug therapy; Z79.01 Long term (current) use of anticoagulants; Z85.3 Personal history of malignant neoplasm of breast; W22.8XXA Striking against or struck by other objects, initial encounter; Y93.89 Activity, other specified; Y92.89 Other specified places as the place of occurrence of the external cause; Y99.8 Other external cause status
CPT/HCPCS: 11042; A4450; A6021; A6197; A6456

== ENCOUNTER → 2021-04-23 | Outpatient (CLI) | payer MEDICARE ==
[~2021-04-23] MED LIST changes: +IOHEXOL 350 MG/ML 100ML INFUS..BTL IV ONE; -LIDOCAINE HCL 4% LTA SOL 4 ML VIAL TP ONE
== END | disposition home or self-care (01) ==
LOC: RAH 07:57
PROVIDERS: ATTEND Internal Medicine Cardiovascular Disease
DX: I51.7 Cardiomegaly (principal)
CPT/HCPCS: 71275; Q9967

== ENCOUNTER → 2021-05-01 | Outpatient (CLI) | payer MEDICARE ==
[~2021-05-01] MED LIST changes: -IOHEXOL 350 MG/ML 100ML INFUS..BTL IV ONE; +LIDOCAINE HCL 4% LTA SOL 4 ML VIAL TP ONE
== END | disposition home or self-care (01) ==
LOC: WHH 09:47
PROVIDERS: ATTEND Family Medicine
DX: T81.89XD Other complications of procedures, not elsewhere classified, subsequent encounter (principal); E11.622 Type 2 diabetes mellitus with other skin ulcer; L97.222 Non-pressure chronic ulcer of left calf with fat layer exposed; S81.802D Unspecified open wound, left lower leg, subsequent encounter; E11.21 Type 2 diabetes mellitus with diabetic nephropathy; E11.22 Type 2 diabetes mellitus with diabetic chronic kidney disease; I12.9 Hypertensive chronic kidney disease with stage 1 through stage 4 chronic kidney disease, or unspecified chronic kidney disease; N18.30 Chronic kidney disease, stage 3 unspecified; I89.0 Lymphedema, not elsewhere classified; E78.5 Hyperlipidemia, unspecified; I25.10 Atherosclerotic heart disease of native coronary artery without angina pectoris; I48.0 Paroxysmal atrial fibrillation; E03.9 Hypothyroidism, unspecified; G47.30 Sleep apnea, unspecified; F41.9 Anxiety disorder, unspecified; F32.9 Major depressive disorder, single episode, unspecified; Z68.38 Body mass index [BMI] 38.0-38.9, adult; Z96.651 Presence of right artificial knee joint; Z79.899 Other long term (current) drug therapy; Z79.01 Long term (current) use of anticoagulants; Y83.8 Other surgical procedures as the cause of abnormal reaction of the patient, or of later complication, without mention of misadventure at the time of the procedure
CPT/HCPCS: 97597; A6197; A6456

== ENCOUNTER → 2021-05-07 | Outpatient (CLI) | payer MEDICARE ==
[~2021-05-07] VITALS: Ht 152.4 cm; Wt 121.1 kg
[~2021-05-07] MED LIST changes: +0.9%NACL 1000ML 1,000 ML IV SCH; +ACET-2123 PO; +AMIO200T68 PO; -LIDOCAINE HCL 4% LTA SOL 4 ML VIAL TP ONE; +MELA5CAP PO
[2021-05-07 12:43] LABS: BASOPHILS % (AUTO) 0.2 % (0.0-5.0); HEMATOCRIT 43.2 % (36-48); LYMPHOCYTES % (AUTO) 12.7 % (21.0-51.0); MEAN CORPUSCULAR HGB CONC 30.3 g/dL (32.0-36.0); MEAN CORPUSCULAR VOLUME 88.9 fL (79-99); MONOCYTES % (AUTO) 11.6 % (3.0-13.0); NEUTROPHILS % (AUTO) 75.3 % (40.0-77.0); PLATELET COUNT (AUTO) 165 K/uL (130-400); RED BLOOD CELL COUNT(AUTO) 4.86 MIL/uL (4.00-5.50); RED CELL DISTRIBUTION WIDTH 15.3 % (11.0-15.5); WHITE BLOOD COUNT (AUTO) 5.3 K/uL (4.8-10.8)
[2021-05-07 12:51] LABS: CREATININE 1.5 mg/dL (0.5-1.5); POTASSIUM 4.9 mmol/L (3.5-5.1)
[2021-05-07 12:53] LABS: INR 1.13 (0.85-1.15); PROTHROMBIN TIME 12.2 SEC (9.6-11.6)
[2021-05-07 12:54] LABS: PARTIAL THROMBOPLASTIN TIME 30.2 SEC (26.3-35.5)
[2021-05-07 14:02] VITALS: BP 148/83
== END | disposition home or self-care (01) ==
LOC: DAH 10:00 → EDSTATUS 05-08 06:00
PROVIDERS: ATTEND Internal Medicine Cardiovascular Disease
DX: Z01.810 Encounter for preprocedural cardiovascular examination (principal); Z20.822 Contact with and (suspected) exposure to COVID-19; I48.0 Paroxysmal atrial fibrillation; I48.4 Atypical atrial flutter; Z79.01 Long term (current) use of anticoagulants
CPT/HCPCS: 36415; 80048; 85025; 85610; 85730; 87635; 93005; C9803

== ENCOUNTER 2021-05-08 08:10 | Emergency (ER) | payer MEDICARE ==
[~2021-05-08] VITALS: Ht 172.7 cm; Wt 120.2 kg
[~2021-05-08 08:10] MED LIST changes: -0.9%NACL 1000ML 1,000 ML IV SCH; -AMLO-257 PO; -CLIN-141 PO; -L.AC1CAP6 PO; -MELA10TA2 PO; -OXYB-66 PO
[2021-05-08 08:12] VITALS: BP 145/87
[2021-06-13] MEDS ORDERED: CARI4.5C PO (15:53)
[2021-06-13] MEDS ORDERED: L.AC1CAP6 PO (16:22)
[2021-06-13] MEDS ORDERED: DILT120C12 PO (16:22)
== END 2021-05-08 09:10 | disposition home or self-care (01) ==
LOC: EDH 08:10
DX: S60.512A Abrasion of left hand, initial encounter (principal); Z88.1 Allergy status to other antibiotic agents; Z79.899 Other long term (current) drug therapy; Z79.01 Long term (current) use of anticoagulants; W01.0XXA Fall on same level from slipping, tripping and stumbling without subsequent striking against object, initial encounter; Y93.89 Activity, other specified; Y92.89 Other specified places as the place of occurrence of the external cause; Y99.8 Other external cause status

== ENCOUNTER → 2021-05-17 | Outpatient (CLI) | payer MEDICARE | END | disposition home or self-care (01) | LOC: WHH 13:48 | PROVIDERS: ATTEND Family Medicine | DX: T81.89XD Other complications of procedures, not elsewhere classified, subsequent encounter (principal); E11.622 Type 2 diabetes mellitus with other skin ulcer; L97.222 Non-pressure chronic ulcer of left calf with fat layer exposed; S81.802D Unspecified open wound, left lower leg, subsequent encounter; E11.21 Type 2 diabetes mellitus with diabetic nephropathy; E11.22 Type 2 diabetes mellitus with diabetic chronic kidney disease; I12.9 Hypertensive chronic kidney disease with stage 1 through stage 4 chronic kidney disease, or unspecified chronic kidney disease; N18.30 Chronic kidney disease, stage 3 unspecified; I89.0 Lymphedema, not elsewhere classified; E78.5 Hyperlipidemia, unspecified; I25.10 Atherosclerotic heart disease of native coronary artery without angina pectoris; I48.0 Paroxysmal atrial fibrillation; E03.9 Hypothyroidism, unspecified; G47.30 Sleep apnea, unspecified; F41.9 Anxiety disorder, unspecified; F32.9 Major depressive disorder, single episode, unspecified; Z68.38 Body mass index [BMI] 38.0-38.9, adult; Z96.651 Presence of right artificial knee joint; Z79.899 Other long term (current) drug therapy; Z79.01 Long term (current) use of anticoagulants; Y83.8 Other surgical procedures as the cause of abnormal reaction of the patient, or of later complication, without mention of misadventure at the time of the procedure | CPT/HCPCS: G0463 ==

== ENCOUNTER 2021-06-14 10:06 | Observation (INO) | payer MEDICARE ==
[2021-06-13 12:35] LABS: HEMATOCRIT 42.3 % (36-48); LYMPHOCYTES % (AUTO) 12.3 % (21.0-51.0); MEAN CORPUSCULAR HEMOGLOBIN 27.3 pg (27.0-33.0); MEAN CORPUSCULAR HGB CONC 32.2 g/dL (32.0-36.0); MEAN CORPUSCULAR VOLUME 84.8 fL (79-99); NEUTROPHILS % (AUTO) 77.4 % (40.0-77.0); PLATELET COUNT (AUTO) 150 K/uL (130-400); RED BLOOD CELL COUNT(AUTO) 4.99 MIL/uL (4.00-5.50); RED CELL DISTRIBUTION WIDTH 15.1 % (11.0-15.5); WHITE BLOOD COUNT (AUTO) 6.1 K/uL (4.8-10.8)
[2021-06-13 12:53] LABS: INR 1.17 (0.85-1.15); PROTHROMBIN TIME 12.6 SEC (9.6-11.6)
[2021-06-13 12:54] LABS: PARTIAL THROMBOPLASTIN TIME 29.8 SEC (26.3-35.5)
[2021-06-13 13:22] LABS: CREATININE 1.4 mg/dL (0.5-1.5); POTASSIUM 4.8 mmol/L (3.5-5.1)
[2021-06-13 14:42] VITALS: BP 110/74
[~2021-06-14] VITALS: Ht 175.3 cm; Wt 117.9 kg
[2021-06-14] VITALS (22 sets, daily range): BP systolic 91–156; BP diastolic 47–97
[~2021-06-14 10:06] MED LIST changes: +0.9%NACL 1000ML 1,000 ML IV SCH; -CARI3CAP PO; +CARI4.5C PO; +DILT120C12 PO; +L.AC1CAP6 PO
[2021-06-14] MEDS ORDERED: HEPARIN 10,000 UNIT/10ML (1,000 UNIT/ML) VIAL ONE ×2 (10:44→11:23)
[2021-06-14] MEDS ORDERED: LIDOCAINE HCL 400MG/20ML VIAL ONE (10:44)
[2021-06-14] MEDS ORDERED: SUCCINYLCHOLINE CHLORIDE 20 MG/ML 10 ML VIAL ONE (11:23)
[2021-06-14] MEDS ORDERED: LIDOCAINE HCL-MPF 1% 5ML AMP IJ ONE (11:23)
[2021-06-14] MEDS ORDERED: KETAMINE 50MG/ML SYRINGE 50 MG/ML DISP.SYRIN IV ONE (11:23)
[2021-06-14] MEDS ORDERED: MIDAZOLAM HCL 1 MG/ML 2ML VIAL ONE ×2 (11:24→12:47)
[2021-06-14] MEDS ORDERED: ROCURONIUM 10MG/1ML SYR 10 MG/ML ML ONE (11:24)
[2021-06-14] MEDS ORDERED: FENTANYL CITRATE PF 50 MCG/1 ML 2ML VIAL ONE (11:25)
[2021-06-14] MEDS ORDERED: EPHEDRINE SULFATE 50 MG/ML AMPULE ONE (11:25)
[2021-06-14] MEDS ORDERED: PROPOFOL 10 MG/ML 20ML VIAL IV ONE ×2 (11:43→12:23)
[2021-06-14] MEDS ORDERED: ROCURONIUM BROMIDE 10MG/1ML 5ML VL ONE (12:23)
[2021-06-14] MEDS ORDERED: LIDOCAINE HCL-MPF 1% 2ML VIAL ONE (12:33)
[2021-06-14] MEDS ORDERED: ISOPROTERENOL HCL 0.2 MG/ML AMP/VIAL/BAG ONE (15:40)
[2021-06-14] MEDS ORDERED: PROTAMINE SULFATE 10 MG/ML 25ML VIAL IV ONE (16:08)
[2021-06-14] MEDS ORDERED: ACETAMINOPHEN 500 MG TABLET PO PRN (17:00)
[2021-06-14] MEDS ORDERED: DOCUSATE SODIUM 100 MG CAP PO PRN (18:00)
[2021-06-14] MEDS: SUCRALFATE 1 GM TABLET PO SCH (18:41)
[2021-06-14] MEDS ORDERED: PANTOPRAZOLE 40 MG TAB DR PO SCH (19:00)
[2021-06-14] MEDS ORDERED: VITAMIN D PO SCH (19:30)
[2021-06-14] MEDS ORDERED: NETARSUDIL MESYLATE OU SCH (21:00)
[2021-06-14] MEDS ORDERED: ATORVASTATIN 40 MG TABLET PO SCH (21:00)
[2021-06-14] MEDS ORDERED: VENLAFAXINE HCL XR 37.5 MG CAP PO SCH (21:00)
[2021-06-14] MEDS ORDERED: METOPROLOL SUCCINATE 50 MG TAB.SR.24H PO SCH (21:00)
[2021-06-14] MEDS ORDERED: HOME MEDICATION 1 EACH PO SCH (21:00)
[2021-06-14] MEDS ORDERED: (Melatonin 5 MG) PO SCH (21:00)
[2021-06-14] MEDS: APIXABAN 5 MG TABLET PO SCH (21:07)
[2021-06-14] MEDS: AMIODARONE 200 MG TABLET PO SCH (21:07)
[2021-06-14] MEDS ORDERED: DEXTROSE 50%-WATER 50 ML DISP.SYRIN IV PRN (23:30)
[2021-06-14] MEDS ORDERED: HYDROXYZINE 25 MG TABLET PO ONE (23:30)
[2021-06-14] MEDS ORDERED: GLUCAGON 1MG KIT 1 MG ML IM PRN (23:30)
[2021-06-15] MEDS ORDERED: HYDROXYZINE 25 MG TABLET ONE (00:58)
[2021-06-15] MEDS: SUCRALFATE 1 GM TABLET PO SCH ×3 (00:59→11:58)
[2021-06-15 03:25] VITALS: BP 106/52
[2021-06-15 04:55] LABS: BASOPHILS % (AUTO) 0.2 % (0.0-5.0); HEMATOCRIT 37.8 % (36-48); LYMPHOCYTES % (AUTO) 13.6 % (21.0-51.0); MEAN CORPUSCULAR HEMOGLOBIN 27.8 pg (27.0-33.0); MEAN CORPUSCULAR HGB CONC 31.2 g/dL (32.0-36.0); MEAN CORPUSCULAR VOLUME 88.9 fL (79-99); MONOCYTES % (AUTO) 14.2 % (3.0-13.0); NEUTROPHILS % (AUTO) 71.8 % (40.0-77.0); PLATELET COUNT (AUTO) 132 K/uL (130-400); RED BLOOD CELL COUNT(AUTO) 4.25 MIL/uL (4.00-5.50); RED CELL DISTRIBUTION WIDTH 15.1 % (11.0-15.5); WHITE BLOOD COUNT (AUTO) 4.9 K/uL (4.8-10.8)
[2021-06-15 05:21] LABS: ALBUMIN 3.1 g/dL (3.5-5.0); BILIRUBIN,TOTAL 0.4 mg/dL (0.2-1.0); MAGNESIUM 1.8 mg/dL (1.80-2.40); POTASSIUM 4.3 mmol/L (3.5-5.1); TOTAL PROTEIN, SERUM 6.1 g/dL (6.0-8.3)
[2021-06-15] MEDS ORDERED: LEVOTHYROXINE 75 MCG TABLET PO SCH (06:30)
[2021-06-15] MEDS: INSULIN HUMULIN R 100 UNIT/ML 3ML SQ SCH ×2 (07:23→11:30)
[2021-06-15 08:40] VITALS: BP 128/59
[2021-06-15] MEDS ORDERED: DILTIAZEM 120MG SR CAP PO SCH (09:00)
[2021-06-15] MEDS ORDERED: LAMOTRIGINE 100 MG TABLET PO SCH (09:00)
[2021-06-15] MEDS ORDERED: MULTIVITAMIN TABLET PO SCH (09:00)
[2021-06-15] MEDS ORDERED: LACTOBACILLUS RHAMNOSUS GG 1 EACH CAP.SPRINK PO SCH (09:00)
[2021-06-15] MEDS ORDERED: LOSARTAN 100 MG TABLET PO SCH (09:00)
[2021-06-15] MEDS ORDERED: FISH OIL 1000 MG/CAP PO SCH (09:00)
[2021-06-15] MEDS ORDERED: FUROSEMIDE 20 MG TABLET PO SCH (09:00)
[2021-06-15] MEDS ORDERED: PANTOPRAZOLE 40 MG TAB DR PO SCH (09:00)
[2021-06-15] MEDS ORDERED: PANT40TA PO (09:16)
[2021-06-15] MEDS: APIXABAN 5 MG TABLET PO SCH (09:51)
[2021-06-15] MEDS: AMIODARONE 200 MG TABLET PO SCH (09:51)
[2021-06-15] MEDS ORDERED: CARAL PO (11:41)
[2021-06-15 12:48] VITALS: BP 108/60
== END 2021-06-15 15:05 | disposition home or self-care (01) ==
LOC: DAH 10:06 → DAHIP 10:07 → 2DH 18:31
PROVIDERS: ADMIT Internal Medicine; ATTEND Internal Medicine
DX: I48.0 Paroxysmal atrial fibrillation (principal); Z20.822 Contact with and (suspected) exposure to COVID-19; I48.4 Atypical atrial flutter; I12.9 Hypertensive chronic kidney disease with stage 1 through stage 4 chronic kidney disease, or unspecified chronic kidney disease; N18.30 Chronic kidney disease, stage 3 unspecified; E11.22 Type 2 diabetes mellitus with diabetic chronic kidney disease; I25.10 Atherosclerotic heart disease of native coronary artery without angina pectoris; C50.919 Malignant neoplasm of unspecified site of unspecified female breast; E03.9 Hypothyroidism, unspecified; E78.5 Hyperlipidemia, unspecified; F32.9 Major depressive disorder, single episode, unspecified; G47.33 Obstructive sleep apnea (adult) (pediatric); Z79.01 Long term (current) use of anticoagulants; Z85.3 Personal history of malignant neoplasm of breast; Z86.73 Personal history of transient ischemic attack (TIA), and cerebral infarction without residual deficits; Z90.10 Acquired absence of unspecified breast and nipple; Z98.61 Coronary angioplasty status; Z98.890 Other specified postprocedural states; Z79.899 Other long term (current) drug therapy; Z79.4 Long term (current) use of insulin
CPT/HCPCS: 36415 ×2; 71045; 80048; 80053; 82948 ×5; 83735; 85025 ×2; 85610; 85730; 87635; 93005 ×3; 93622; 93623; 93655; 93656; 93657 ×2; 97039; 97161; A4215 ×2; A4216; A4221; A4222; A4223 ×3; A4344; A4520; A4554; A4606; A4649 ×2; A4663; C1730; C1731; C1732; C1893; C1894 ×5; C9803; G0378 ×22; J0330; J1644 ×4; J2250 ×2; J2704 ×2; J2720; J3010; J3490 ×7; J7030

== ENCOUNTER 2021-06-15 19:27 | Observation (INO) | payer MEDICARE ==
[~2021-06-15] VITALS: Ht 175.3 cm; Wt 122.0 kg
[~2021-06-15 19:27] MED LIST changes: -0.9%NACL 1000ML 1,000 ML IV SCH; +CARAL PO; +PANT40TA PO
[2021-06-15] MEDS ORDERED: MORPHINE 2 MG SYG IVP ONE (21:00)
[2021-06-15 21:17] LABS: BASOPHILS % (AUTO) 0.1 % (0.0-5.0); HEMATOCRIT 35.5 % (36-48); LYMPHOCYTES % (AUTO) 8.1 % (21.0-51.0); MEAN CORPUSCULAR HGB CONC 31.3 g/dL (32.0-36.0); MEAN CORPUSCULAR VOLUME 89.4 fL (79-99); MONOCYTES % (AUTO) 15.9 % (3.0-13.0); NEUTROPHILS % (AUTO) 75.6 % (40.0-77.0); PLATELET COUNT (AUTO) 131 K/uL (130-400); RED BLOOD CELL COUNT(AUTO) 3.97 MIL/uL (4.00-5.50); RED CELL DISTRIBUTION WIDTH 15.5 % (11.0-15.5); WHITE BLOOD COUNT (AUTO) 10.4 K/uL (4.8-10.8)
[2021-06-15 21:27] LABS: CREATININE 1.2 mg/dL (0.5-1.5); POTASSIUM 4.7 mmol/L (3.5-5.1)
[2021-06-15 21:40] LABS: ALBUMIN 3.2 g/dL (3.5-5.0); BILIRUBIN,TOTAL 0.6 mg/dL (0.2-1.0); TOTAL PROTEIN, SERUM 6.5 g/dL (6.0-8.3)
[2021-06-15] MEDS ORDERED: MORPHINE 2 MG SYG ONE (22:03)
[2021-06-15] MEDS ORDERED: NITROGLYCERIN 0.4 MG SL TAB SL PRN (23:30)
[2021-06-15] MEDS ORDERED: ACETAMINOPHEN 325 MG TAB PO PRN ×2 (23:30)
[2021-06-15] MEDS ORDERED: ONDANSETRON 4MG INJ IV PRN (23:30)
[2021-06-15] MEDS ORDERED: GLUCAGON 1MG KIT 1 MG ML IM PRN (23:30)
[2021-06-15] MEDS ORDERED: DEXTROSE 50%-WATER 50 ML DISP.SYRIN IV PRN (23:30)
[2021-06-16] MEDS: ASPIRIN 81 MG EC TAB PO SCH ×2 (00:33→09:00)
[2021-06-16 00:43] LABS: INR 1.22 (0.85-1.15); PARTIAL THROMBOPLASTIN TIME 31.1 SEC (26.3-35.5); PROTHROMBIN TIME 13.1 SEC (9.6-11.6)
[2021-06-16 01:45] LABS: APPEARANCE,URINE Clear (CLEAR); BILIRUBIN,URINE Negative (NEGATIVE); COLOR,URINE Yellow (YELLOW); GLUCOSE, URINE (UA) Negative (NEGATIVE); KETONES,URINE Negative (NEGATIVE); LEUKOCYTE ESTERASE ,URINE Moderate (NEGATIVE); NITRATE,URINE Positive (NEGATIVE); OCCULT BLOOD,URINE Negative (NEGATIVE); PROTEIN,URINE Trace mg/dL (NEGATIVE)
[2021-06-16 02:07] LABS: BACTERIA,URINE Many /HPF (None Seen); RBC,URINE None Seen /HPF (0-1)
[2021-06-16] MEDS ORDERED: CEFTRIAXONE 1G VIAL IVP ONE (06:00)
[2021-06-16] MEDS: INSULIN HUMULIN R 100 UNIT/ML 3ML SQ SCH ×4 (06:13→21:00)
[2021-06-16 07:05] LABS: HEMATOCRIT 34.4 % (36-48); MEAN CORPUSCULAR HEMOGLOBIN 27.1 pg (27.0-33.0); MEAN CORPUSCULAR HGB CONC 30.8 g/dL (32.0-36.0); PLATELET COUNT (AUTO) 127 K/uL (130-400); RED BLOOD CELL COUNT(AUTO) 3.91 MIL/uL (4.00-5.50); RED CELL DISTRIBUTION WIDTH 15.4 % (11.0-15.5); WHITE BLOOD COUNT (AUTO) 7.7 K/uL (4.8-10.8)
[2021-06-16 07:24] LABS: BILIRUBIN,TOTAL 0.8 mg/dL (0.2-1.0); CREATININE 1.1 mg/dL (0.5-1.5); MAGNESIUM 1.7 mg/dL (1.80-2.40); POTASSIUM 3.8 mmol/L (3.5-5.1); TOTAL PROTEIN, SERUM 6.4 g/dL (6.0-8.3)
[2021-06-16 08:00] VITALS: BP 106/58
[2021-06-16] MEDS ORDERED: DOCUSATE SODIUM 100 MG CAP PO PRN (09:00)
[2021-06-16] MEDS ORDERED: ACETAMINOPHEN 500 MG TABLET PO PRN (09:00)
[2021-06-16 09:49] LABS: EOSINOPHILS % (MANUAL) 1 % (1-6); LYMPHOCYTES % (MANUAL) 10 % (22-44); MAN.DIFF COMMENT-IMPRESSION MANUAL DIFFERENTIAL; MONOCYTES % (MANUAL) 15 % (2-9); PLATELET MORPHOLOGY COMMENT ADEQUATE; SEGMENTED NEUTROPHILS % 74 % (40-70)
[2021-06-16] MEDS: MAGNESIUM 2GM PREMIX 50ML 50 ML IV SCH (10:13)
[2021-06-16] MEDS: FISH OIL 1000 MG/CAP PO SCH (10:15)
[2021-06-16] MEDS: FUROSEMIDE 20 MG TABLET PO SCH (10:16)
[2021-06-16] MEDS: LAMOTRIGINE 100 MG TABLET PO SCH (10:16)
[2021-06-16] MEDS: MULTIVITAMIN TABLET PO SCH (10:16)
[2021-06-16] MEDS: SUCRALFATE 1 GM TABLET PO SCH ×4 (10:16→21:57)
[2021-06-16 10:17] LABS: MYOGLOBIN 1174 ng/mL (10-92); THYROID STIMULATING HORMONE 0.65 uIU/mL (0.36-3.74)
[2021-06-16] MEDS: DILTIAZEM 120MG SR CAP PO SCH (10:17)
[2021-06-16] MEDS: FAMOTIDINE 20MG TAB PO SCH ×2 (10:23→21:58)
[2021-06-16] MEDS: LEVOTHYROXINE 75 MCG TABLET PO SCH (10:29)
[2021-06-16] MEDS: LACTOBACILLUS RHAMNOSUS GG 1 EACH CAP.SPRINK PO SCH (10:29)
[2021-06-16] MEDS: AMIODARONE 200 MG TABLET PO SCH ×2 (10:29→21:58)
[2021-06-16] MEDS: PANTOPRAZOLE 40 MG TAB DR PO SCH (10:29)
[2021-06-16 10:59] LABS: CREATINE KINASE, TOTAL 1087 U/L (21-232)
[2021-06-16 12:02] VITALS: BP 116/53
[2021-06-16 16:00] VITALS: BP 156/80
[2021-06-16] MEDS ORDERED: APIXABAN 5 MG TABLET PO SCH (17:15)
[2021-06-16 20:00] VITALS: BP 136/71
[2021-06-16] MEDS: CARIPRAZINE HYDROCHLORIDE 4.5 MG PO SCH (21:00)
[2021-06-16] MEDS: ***HM***(Cyclosporine (Restasis) 1 DROP) OU SCH (21:00)
[2021-06-16] MEDS: NETARSUDIL MESYLATE OU SCH (21:00)
[2021-06-16] MEDS: BIMATOPROST OU SCH (21:00)
[2021-06-16] MEDS: MELATONIN 5 MG PO SCH (21:00)
[2021-06-16 21:46] LABS: AMPHET/METH SCREEN,URINE NEGATIVE (NEGATIVE); BARBITURATE SCREEN, URINE NEGATIVE (NEGATIVE); BENZODIAZEPINES SCREEN,URINE POSITIVE (NEGATIVE); CANNABINOID SCREEN,URINE NEGATIVE (NEGATIVE); COCAINE SCREEN,URINE NEGATIVE (NEGATIVE); OPIATE SCREEN,URINE NEGATIVE (NEGATIVE); PHENCYCLIDINE SCREEN,URINE NEGATIVE (NEGATIVE)
[2021-06-16] MEDS: VENLAFAXINE HCL XR 37.5 MG CAP PO SCH (21:57)
[2021-06-16] MEDS: METOPROLOL SUCCINATE 50 MG TAB.SR.24H PO SCH (21:58)
[2021-06-16] MEDS: ATORVASTATIN 40 MG TABLET PO SCH (21:58)
[2021-06-17] VITALS: BP 99/57
[2021-06-17 04:00] VITALS: BP 105/58
[2021-06-17] MEDS: APIXABAN 5 MG TABLET PO SCH ×3 (04:44→20:42)
[2021-06-17 05:50] LABS: BASOPHILS % (AUTO) 0.1 % (0.0-5.0); EOSINOPHILS % (AUTO) 0.1 % (0.0-8.0); HEMATOCRIT 34.1 % (36-48); MEAN CORPUSCULAR HEMOGLOBIN 27.6 pg (27.0-33.0); MEAN CORPUSCULAR HGB CONC 31.7 g/dL (32.0-36.0); MONOCYTES % (AUTO) 14.4 % (3.0-13.0); PLATELET COUNT (AUTO) 112 K/uL (130-400); RED BLOOD CELL COUNT(AUTO) 3.92 MIL/uL (4.00-5.50); RED CELL DISTRIBUTION WIDTH 15.2 % (11.0-15.5); WHITE BLOOD COUNT (AUTO) 9.2 K/uL (4.8-10.8)
[2021-06-17 06:15] LABS: ALBUMIN 2.6 g/dL (3.5-5.0); BILIRUBIN,TOTAL 0.8 mg/dL (0.2-1.0); MAGNESIUM 1.8 mg/dL (1.80-2.40); POTASSIUM 3.1 mmol/L (3.5-5.1); TOTAL PROTEIN, SERUM 6.1 g/dL (6.0-8.3)
[2021-06-17] MEDS: LEVOTHYROXINE 75 MCG TABLET PO SCH (06:21)
[2021-06-17] MEDS: INSULIN HUMULIN R 100 UNIT/ML 3ML SQ SCH ×4 (06:21→20:43)
[2021-06-17 08:00] VITALS: BP 105/55
[2021-06-17] MEDS: ASPIRIN 81 MG EC TAB PO SCH (09:00)
[2021-06-17] MEDS: LAMOTRIGINE 100 MG TABLET PO SCH (09:00)
[2021-06-17] MEDS: MULTIVITAMIN TABLET PO SCH (10:06)
[2021-06-17] MEDS: AMIODARONE 200 MG TABLET PO SCH ×2 (10:07→20:42)
[2021-06-17] MEDS: FAMOTIDINE 20MG TAB PO SCH ×2 (10:07→20:42)
[2021-06-17] MEDS: SUCRALFATE 1 GM TABLET PO SCH ×4 (10:07→20:42)
[2021-06-17] MEDS: FUROSEMIDE 20 MG TABLET PO SCH (10:08)
[2021-06-17] MEDS: FISH OIL 1000 MG/CAP PO SCH (10:08)
[2021-06-17] MEDS: DILTIAZEM 120MG SR CAP PO SCH (10:09)
[2021-06-17] MEDS: CEFTRIAXONE 1G VIAL IVP SCH (10:09)
[2021-06-17] MEDS: PANTOPRAZOLE 40 MG TAB DR PO SCH (10:23)
[2021-06-17] MEDS ORDERED: KCL 20 MEQ ERTAB PO SCH (10:30)
[2021-06-17 12:00] VITALS: BP 106/55
[2021-06-17] MEDS ORDERED: DOCUSATE SODIUM 100 MG CAP PO SCH (12:30)
[2021-06-17] MEDS ORDERED: POLYETHYLENE GLYCOL 3350 17 GM POWD.PACK PO SCH (12:30)
[2021-06-17] MEDS: LACTOBACILLUS RHAMNOSUS GG 1 EACH CAP.SPRINK PO SCH (13:31)
[2021-06-17 16:00] VITALS: BP 105/57
[2021-06-17 20:00] VITALS: BP 117/73
[2021-06-17] MEDS: VENLAFAXINE HCL XR 37.5 MG CAP PO SCH (20:42)
[2021-06-17] MEDS: ATORVASTATIN 40 MG TABLET PO SCH (20:42)
[2021-06-17] MEDS: METOPROLOL SUCCINATE 50 MG TAB.SR.24H PO SCH (20:42)
[2021-06-17] MEDS: BIMATOPROST OU SCH (20:45)
[2021-06-17] MEDS: ***HM***(Cyclosporine (Restasis) 1 DROP) OU SCH (20:45)
[2021-06-17] MEDS: NETARSUDIL MESYLATE OU SCH (20:45)
[2021-06-17] MEDS: CARIPRAZINE HYDROCHLORIDE 4.5 MG PO SCH (20:46)
[2021-06-17] MEDS: MELATONIN 5 MG PO SCH (20:46)
[2021-06-18] VITALS: BP 113/61
[2021-06-18 04:00] VITALS: BP 108/63
[2021-06-18] MEDS: INSULIN HUMULIN R 100 UNIT/ML 3ML SQ SCH ×2 (06:09→11:30)
[2021-06-18] MEDS: LEVOTHYROXINE 75 MCG TABLET PO SCH (06:13)
[2021-06-18 06:51] LABS: BASOPHILS % (AUTO) 0.1 % (0.0-5.0); EOSINOPHILS % (AUTO) 0.1 % (0.0-8.0); HEMATOCRIT 35.2 % (36-48); LYMPHOCYTES % (AUTO) 11.7 % (21.0-51.0); MEAN CORPUSCULAR HEMOGLOBIN 26.8 pg (27.0-33.0); MEAN CORPUSCULAR VOLUME 86.5 fL (79-99); MONOCYTES % (AUTO) 12.7 % (3.0-13.0); NEUTROPHILS % (AUTO) 75.1 % (40.0-77.0); PLATELET COUNT (AUTO) 131 K/uL (130-400); RED BLOOD CELL COUNT(AUTO) 4.07 MIL/uL (4.00-5.50); WHITE BLOOD COUNT (AUTO) 6.9 K/uL (4.8-10.8)
[2021-06-18 07:03] LABS: MAGNESIUM 1.8 mg/dL (1.80-2.40); POTASSIUM 3.7 mmol/L (3.5-5.1)
[2021-06-18 07:20] VITALS: BP 124/74
[2021-06-18] MEDS: ASPIRIN 81 MG EC TAB PO SCH (08:30)
[2021-06-18] MEDS: AMIODARONE 200 MG TABLET PO SCH (08:30)
[2021-06-18] MEDS: MAGNESIUM 2GM PREMIX 50ML 50 ML IV SCH (08:30)
[2021-06-18] MEDS: APIXABAN 5 MG TABLET PO SCH (08:31)
[2021-06-18] MEDS: FISH OIL 1000 MG/CAP PO SCH (08:31)
[2021-06-18] MEDS: LACTOBACILLUS RHAMNOSUS GG 1 EACH CAP.SPRINK PO SCH (08:31)
[2021-06-18] MEDS: LAMOTRIGINE 100 MG TABLET PO SCH (08:31)
[2021-06-18] MEDS: DILTIAZEM 120MG SR CAP PO SCH (08:32)
[2021-06-18] MEDS: FAMOTIDINE 20MG TAB PO SCH (08:32)
[2021-06-18] MEDS: PANTOPRAZOLE 40 MG TAB DR PO SCH (08:32)
[2021-06-18] MEDS: SUCRALFATE 1 GM TABLET PO SCH ×2 (08:32→14:01)
[2021-06-18] MEDS: FUROSEMIDE 20 MG TABLET PO SCH (08:32)
[2021-06-18] MEDS: CEFTRIAXONE 1G VIAL IVP SCH (08:33)
[2021-06-18] MEDS: CARIPRAZINE HYDROCHLORIDE 4.5 MG PO SCH (08:35)
[2021-06-18] MEDS: MULTIVITAMIN TABLET PO SCH (09:00)
[2021-06-18] MEDS ORDERED: VITAMIN D PO SCH (09:00)
[2021-06-18 11:20] VITALS: BP 132/62
[2021-06-18 15:20] VITALS: BP 125/76
== END 2021-06-18 16:20 ==
LOC: EDH 19:27 → EDHIP 23:13 → 4AH 06-16 05:48 → UNDODISOB 06-18 16:20
PROVIDERS: ADMIT Internal Medicine; ATTEND Internal Medicine
DX: R77.8 Other specified abnormalities of plasma proteins (principal); Z20.822 Contact with and (suspected) exposure to COVID-19; R53.1 Weakness; E78.2 Mixed hyperlipidemia; N39.0 Urinary tract infection, site not specified; E66.01 Morbid (severe) obesity due to excess calories; I12.9 Hypertensive chronic kidney disease with stage 1 through stage 4 chronic kidney disease, or unspecified chronic kidney disease; N18.30 Chronic kidney disease, stage 3 unspecified; E03.9 Hypothyroidism, unspecified; E11.22 Type 2 diabetes mellitus with diabetic chronic kidney disease; E78.5 Hyperlipidemia, unspecified; I48.0 Paroxysmal atrial fibrillation; I48.4 Atypical atrial flutter; M19.90 Unspecified osteoarthritis, unspecified site; Z68.42 Body mass index [BMI] 45.0-49.9, adult; Z79.01 Long term (current) use of anticoagulants; Z85.3 Personal history of malignant neoplasm of breast; Z96.653 Presence of artificial knee joint, bilateral; Z98.61 Coronary angioplasty status; Z79.899 Other long term (current) drug therapy; Z98.890 Other specified postprocedural states; Z79.4 Long term (current) use of insulin
CPT/HCPCS: 36415 ×4; 70450; 71045 ×2; 72170; 73560; 80048; 80053 ×3; 80061; 80305; 81001; 82550 ×4; 82607; 82746; 82948 ×9; 83735 ×3; 83874 ×3; 84145 ×2; 84443; 84484 ×4; 85025 ×4; 85610; 85651; 85730; 86140; 87040 ×2; 87077; 87088; 87186; 87635; 93005; 96365; 96366; 96375 ×2; 96376 ×2; 97039 ×4; 97161; 97530 ×2; 99285; C9803; G0378 ×62; J0696 ×3; J1815 ×2; J3475 ×2

== ENCOUNTER → 2023-07-18 | Outpatient (CLI) | payer MEDICARE ==
[~2023-07-18] MED LIST changes: -ACET-2123 PO; +ACET-66 PO; +AMOX500T2 PO; +ASCO500T20 PO; -BIMA12.5OS OU; +BIMA2.5D4 OP; -CARAL PO; -CARI4.5C PO; +CYCL30DR OP; -CYCL30DR OU; -DILT120C12 PO; +DILT120C78 PO; +DOCU-116 PO; -DOCU100T9 PO; -L.AC1CAP6 PO; +LACT10SO9 PO; -LOSA100T58 PO; -MELA5CAP PO; +MELA5TAB14 PO; -METO-391 PO; +METO75TA PO; -MIRA50TA PO; +MULT-1203 PO; -MULT-1367 PO; +NETA2.5D OP; -NETA2.5D OU; -PANT40TA PO; +VENL-191 PO; -VENL75CA97 PO
== END | disposition home or self-care (01) ==
LOC: RAH 09:00
PROVIDERS: ATTEND Internal Medicine
DX: E03.9 Hypothyroidism, unspecified (principal); E04.9 Nontoxic goiter, unspecified
CPT/HCPCS: 76536

== ENCOUNTER → 2023-07-25 | Outpatient (CLI) | payer MEDICARE | END | disposition home or self-care (01) | LOC: RAH 10:30 | PROVIDERS: ATTEND Internal Medicine Gastroenterology | DX: R13.10 Dysphagia, unspecified (principal) | CPT/HCPCS: 74240 ==

== ENCOUNTER → 2023-10-28 | Outpatient (CLI) | payer MEDICARE ==
[~2023-10-28] MED LIST changes: -MELA5TAB14 PO; +MELA5TAB66 PO
== END | disposition home or self-care (01) ==
LOC: SHCH 14:14
PROVIDERS: ATTEND Internal Medicine Cardiovascular Disease
DX: I08.3 Combined rheumatic disorders of mitral, aortic and tricuspid valves (principal); I11.9 Hypertensive heart disease without heart failure; I48.0 Paroxysmal atrial fibrillation; I95.1 Orthostatic hypotension; E11.9 Type 2 diabetes mellitus without complications; E78.5 Hyperlipidemia, unspecified; E66.9 Obesity, unspecified
CPT/HCPCS: 93306

== ENCOUNTER 2023-11-19 07:55 | Day surgery (SDC) | payer MEDICARE ==
[~2023-11-19] VITALS: Ht 177.8 cm; Wt 122.5 kg
[2023-11-19] VITALS (11 sets, daily range): BP systolic 144–172; BP diastolic 56–75; PULSE 67–84; RESP 15–19
[2023-11-19] MEDS ORDERED: VENL75 PO (08:19)
[2023-11-19] MEDS ORDERED: FISH1CAP20 PO (08:19)
[2023-11-19] MEDS ORDERED: TOPI-97 PO (08:20)
[2023-11-19] MEDS: 0.9%NACL 1000ML 1,000 ML IV ONE (08:57)
[2023-11-19] MEDS ORDERED: PROPOFOL 10 MG/ML 20ML VIAL IV ONE (09:59)
== END 2023-11-19 11:18 | disposition home or self-care (01) ==
LOC: ENDO 07:55 → DAH 07:55 → ENDO 11:18
PROVIDERS: ATTEND Internal Medicine Gastroenterology
DX: R13.10 Dysphagia, unspecified (principal); K29.50 Unspecified chronic gastritis without bleeding; K22.2 Esophageal obstruction; R12 Heartburn; K59.00 Constipation, unspecified; K57.30 Diverticulosis of large intestine without perforation or abscess without bleeding; I48.91 Unspecified atrial fibrillation; E11.9 Type 2 diabetes mellitus without complications; E03.9 Hypothyroidism, unspecified; E78.5 Hyperlipidemia, unspecified; I11.0 Hypertensive heart disease with heart failure; I50.9 Heart failure, unspecified; F41.9 Anxiety disorder, unspecified; F32.89 Other specified depressive episodes; G47.30 Sleep apnea, unspecified; E66.9 Obesity, unspecified; Z68.38 Body mass index [BMI] 38.0-38.9, adult; Z86.010 Personal history of colon polyps; Z82.49 Family history of ischemic heart disease and other diseases of the circulatory system; Z79.899 Other long term (current) drug therapy; Z79.890 Hormone replacement therapy; Z98.49 Cataract extraction status, unspecified eye; Z90.710 Acquired absence of both cervix and uterus; Z98.890 Other specified postprocedural states
CPT/HCPCS: 82948; 43239; 43249; J7030 ×2; J2704; C1726; A4620; A7002; J3490